=== PATIENT | male | born 1940 | race Caucasian/White ===

== ENCOUNTER → 2017-08-21 07:37 | Outpatient (CLI) | payer MEDICARE, OTHER, SELFPAY ==
[2017-08-21 11:02] LABS: Anion Gap 7 (5-15); BUN 19 mg/dL (7-18); BUN/Creat Ratio 17.8 RATIO (10-20); Calcium,Total 8.8 mg/dL (8.5-10.1); Chloride 107 mmol/L (98-107); Cholesterol 170 mg/dL (200); Creatinine, Serum 1.07 mg/dL (0.70-1.30); EST Glomerular Filtration Rate 72 mL/min (>60); Est Glom Filt Rate - Afr Amer 87 mL/min (>60); Glucose 129 mg/dL (74-106); High Density Lipoprotein 42 mg/dL; PSA,Total - Annual Screen 0.23 ng/mL (0.00-4.00); Potassium 4.1 mmol/L (3.5-5.1); Sodium Level 142 mmol/L (136-145); Triglycerides 131 mg/dL; Very Low Density Lipoprotein 26 mg/dL (5-40)
== END ==
PROVIDERS: Family Provider Family Medicine; PCP Family Medicine; Visit Provider Family Medicine
DX: R73.03 Prediabetes (principal); E78.00 Pure hypercholesterolemia, unspecified; Z12.5 Encounter for screening for malignant neoplasm of prostate
CPT/HCPCS: 36415; 80048; 80061; 84153; G0103

== ENCOUNTER → 2018-02-22 08:44 | Outpatient (CLI) | payer MEDICARE, OTHER, SELFPAY ==
[2017-04-13 11:11] VITALS: BMI 36.1
[2018-02-22 10:18] LABS: Hemoglobin A1c 6.8 % (4.2-6.3)
[2018-02-22 10:21] LABS: Anion Gap 9 (5-15); BUN 19 mg/dL (7-18); BUN/Creat Ratio 16.5 RATIO (10-20); Calcium,Total 8.9 mg/dL (8.5-10.1); Chloride 105 mmol/L (98-107); Cholesterol 158 mg/dL (200); Creatinine, Serum 1.15 mg/dL (0.70-1.30); EST Glomerular Filtration Rate 66 mL/min (>60); Est Glom Filt Rate - Afr Amer 80 mL/min (>60); Glucose 125 mg/dL (74-106); High Density Lipoprotein 38 mg/dL; Potassium 4.2 mmol/L (3.5-5.1); Sodium Level 139 mmol/L (136-145); Triglycerides 181 mg/dL; Very Low Density Lipoprotein 36 mg/dL (5-40)
== END ==
PROVIDERS: Family Provider Family Medicine; PCP Family Medicine; Referring Provider Family Medicine; Visit Provider Family Medicine
DX: R73.03 Prediabetes (principal); E78.00 Pure hypercholesterolemia, unspecified
CPT/HCPCS: 36415; 80048; 80061; 83036

== ENCOUNTER → 2018-04-06 08:46 | Outpatient (CLI) | payer MEDICARE, OTHER, SELFPAY ==
[2018-03-08 10:09] VITALS: BMI 36.4
--- NOTE | 2018-04-06 08:48 | ECHOCS_ITS ---
Reason For Study: MURMUR Procedure This was a 2D Doppler, Color Flow transthoracic echocardiogram. The study was technically difficult. Contrast injection was performed. Exam performed in department. Left Ventricle Normal LV size. Left ventricular systolic function is normal. The estimated ejection fraction is 60 %. No regional wall motion abnormalities noted. Right Ventricle Normal RV size. Normal systolic function. Atria Normal left atrium. Normal right atrium. No doppler evidence for ASD. Mitral Valve There is no mitral annular calcification. Normal mitral valve. Trivial mitral valve insufficiency. Tricuspid Valve Normal tricuspid valve. Mild eccentric tricuspid valve insufficiency. Right ventricular systolic pressure estimated to be 32 mmHg. Aortic Valve Moderate aortic stenosis. Pulmonic Valve The pulmonic valve is not well visualized. Mild (1+) pulmonic valve insufficiency. Great Vessels Normal sized aortic root. Calcified aortic root. Medication 22 gauge I.V. with prn adaptor inserted into right arm. Diluted definity 5ml given slow IV push to enhance endocardial definition. MMode/2D Measurements & Calculations LVIDd: 4.2 cm IVSd: 1.0 cm LVOT diam: 2.0 cm LVIDs: 3.0 cm LVPWd: 1.1 cm LVOT area: 3.1 cm2 RVDd: 4.3 cm FS: 28.3 % Ao root diam: 3.0 cm LAV(MOD-bp): 65.0 ml EDV(MOD-sp4): 142.0 ml LAV(MOD-bp) Indexed: 27.3 ml/m2 ESV(MOD-sp4): 45.8 ml LAV(MOD-sp2): 89.9 ml EF(MOD-sp4): 67.8 % LAV(MOD-sp4): 46.3 ml EDV(MOD-sp2): 122.0 ml SV(MOD-sp4): 96.3 ml SV(MOD-sp2): 54.3 ml EF(MOD-sp2): 44.5 % Aortic Valve Planimetry: 1.3 cm2 LA A4 area: 18.2 cm2 LA dimension(2D): 4.6 cm RA A4 area: 10.3 cm2 Time Measurements MV dec time: 0.26 sec Doppler Measurements & Calculations MV E max jose: 96.7 cm/sec Lat Peak E' Jose: 8.3 cm/sec Med Peak E' Jose: 5.4 cm/sec MV A max jose: 83.9 cm/sec E/E' lat: 11.6 E/E' med: 17.8 MV E/A: 1.2 Ao V2 max: 346.8 cm/sec LV V1 max: 144.9 cm/sec SV(LVOT): 109.1 ml Ao max P.4 mmHg LV V1 max P.4 mmHg Ao V2 mean: 264.3 cm/sec LV V1 mean P.4 mmHg Ao mean P.7 mmHg LV V1 mean: 97.6 cm/sec Ao V2 VTI: 86.4 cm LV V1 VTI: 35.1 cm LELAND(I,D): 1.3 cm2 LELAND(V,D): 1.3 cm2 PA V2 max: 92.3 cm/sec PI end-d jose: 79.2 cm/sec TR max jose: 267.8 cm/sec TR max P.9 mmHg Interpretation Summary The study was technically difficult. Contrast injection was performed. Left ventricular systolic function is normal. The estimated ejection fraction is 60 %. Trivial mitral valve insufficiency. Mild eccentric tricuspid valve insufficiency. Moderate aortic stenosis. Mild (1+) pulmonic valve insufficiency. Calcified aortic root. Right ventricular systolic pressure estimated to be 32 mmHg. Transmitral diastolic flow velocities suggest diastolic dysfunction (pseudonormal pattern). Ordering Physician: Ronal Escobar Referring Physician: HOLA DUPREE Performed By: Shelia Valentine, REGGIE, RVT
== END ==
PROVIDERS: Family Provider Family Medicine; PCP Family Medicine; Referring Provider Internal Medicine Cardiovascular Disease; Visit Provider Internal Medicine Cardiovascular Disease
DX: I36.1 Nonrheumatic tricuspid (valve) insufficiency (principal)
CPT/HCPCS: 93306; Q9957; A4216; C8929

== ENCOUNTER → 2018-06-07 15:06 | Outpatient (CLI) | payer MEDICARE, OTHER, SELFPAY ==
[2018-03-08 10:09] VITALS: BMI 36.4
--- NOTE | 2018-06-07 15:10 | RAD_ITS ---
STUDY: X-RAY CHEST REASON FOR EXAM: Male, 78 years old. Bronchitis TECHNIQUE: Frontal and lateral views COMPARISON: December 17, 2005 FINDINGS: Multiple sternotomy wires, with the upper 2 wires fractured. The lungs are clear and expanded. There is no demonstrated pleural abnormality. Normal size heart. Normal mediastinum and colten. Normal visualized pulmonary arteries. Calcified aortic arch and descending thoracic aorta. Degenerative changes of the thoracic spine. Normal visualized ribs, clavicles, and shoulders. There is no demonstrated abnormality of the visualized soft tissue structures of the upper abdomen. RAD/Chest PA and Lateral IMPRESSION: No acute pulmonary pathology of the chest. Electronically Signed: Brian Medina DO at 23:57 EDT Tel [phone], Service support ,
== END ==
PROVIDERS: Family Provider Family Medicine; PCP Family Medicine; Referring Provider Family Medicine; Visit Provider Family Medicine
DX: J20.9 Acute bronchitis, unspecified (principal)
CPT/HCPCS: 71046

== ENCOUNTER → 2018-10-12 08:17 | Outpatient (CLI) | payer MEDICARE, OTHER, SELFPAY ==
[2018-03-08 10:09] VITALS: BMI 36.4
[2018-10-12 10:39] LABS: Microalbumin,Random Urine 11.3 mg/L (NO RANGE EST.); Microalbumin:Creatinine Ratio 5.2 mg/g CRE (<30 mg/g CRE)
[2018-10-12 10:48] LABS: Hemoglobin A1c 6.1 % (4.2-6.3)
[2018-10-12 10:55] LABS: ALB/GLOB Ratio 0.9 RATIO (0.9-2.4); AST(SGOT) 17 U/L (15-37); Alanine Aminotransfer ALT/SGPT 41 U/L (16-61); Albumin, Serum 3.6 g/dL (3.2-5.0); Alkaline Phosphatase 59 U/L (45-117); Anion Gap 10 (5-15); BUN 18 mg/dL (7-18); BUN/Creat Ratio 16.2 RATIO (10-20); Calcium,Total 8.7 mg/dL (8.5-10.1); Chloride 109 mmol/L (98-107); Cholesterol 145 mg/dL (200); Creatinine, Serum 1.11 mg/dL (0.70-1.30); EST Glomerular Filtration Rate 68 mL/min (>60); Est Glom Filt Rate - Afr Amer 83 mL/min (>60); Globulin 3.8 g/dL (2.2-4.2); Glucose 139 mg/dL (74-106); High Density Lipoprotein 41 mg/dL; Potassium 4.2 mmol/L (3.5-5.1); Protein, Total 7.4 g/dL (6.4-8.2); Sodium Level 143 mmol/L (136-145); Thyroid Stim Hormone (TSH) 0.84 uIU/mL (0.358-3.74); Triglycerides 108 mg/dL; Very Low Density Lipoprotein 22 mg/dL (5-40)
== END ==
PROVIDERS: Family Provider Family Medicine; PCP Family Medicine; Referring Provider Family Medicine; Visit Provider Family Medicine
DX: I25.10 Atherosclerotic heart disease of native coronary artery without angina pectoris (principal); R73.03 Prediabetes
CPT/HCPCS: 36415; 80053; 80061; 82043; 82570; 83036; 84443

== ENCOUNTER → 2018-12-14 08:42 | Outpatient (CLI) | payer MEDICARE, OTHER, SELFPAY ==
[2018-03-08 10:09] VITALS: BMI 36.4
--- NOTE | 2018-12-14 08:44 | CDU_ITS ---
Reason For Study: carotid bruit Rt. Velocities/BP Lt. Velocities/BP Prox CCA 94.3/20.0 cm/sec. Prox CCA 135.7/33.4 cm/sec. Mid CCA 96.9/25.2 cm/sec. Mid CCA 109.7/27.4 cm/sec. Dist CCA 83.8/17.3 cm/sec. Dist CCA 77.7/22.5 cm/sec. Prox ICA 145.5/24.8 cm/sec. Prox ICA 59.3/13.9 cm/sec. Mid ICA 82.6/23.7 cm/sec. Mid ICA 61.8/16.3 cm/sec. Dist ICA 67.9/23.7 cm/sec. Dist ICA 57.3/20.7 cm/sec. Rt. ICA/CCA = 1.5. Lt. ICA/CCA = .6. Prox ECA 167.5/20.4 cm/sec. Prox ECA 106.5/20.6 cm/sec. Rt. Vert. 34.3/7.8 cm/sec. Lt. Vert. 50.7/11.4 cm/sec. Right Extracranial There is heterogeneous, irregular atherosclerotic plaque noted in the right common carotid artery. There is heterogeneous, irregular atherosclerotic plaque noted in the right internal carotid artery. The atherosclerotic plaque causes acoustic shadowing. There is heterogeneous, irregular atherosclerotic plaque noted in the right external carotid artery. Antegrade flow is noted in the right vertebral artery. There is heterogeneous, irregular atherosclerotic plaque noted in the right bulb. Left Extracranial There is heterogeneous, irregular atherosclerotic plaque noted in the left common carotid artery. There is heterogeneous, irregular atherosclerotic plaque noted in the left internal carotid artery. There is heterogeneous, irregular atherosclerotic plaque noted in the left external carotid artery. Antegrade flow is noted in the left vertebral artery. There is heterogeneous, irregular atherosclerotic plaque noted in the left bulb. Procedure Carotid Duplex 42725. The exam was diagnostic. Exam performed in department. Interpretation Summary Moderate (50-69%) stenosis right extracranial internal carotid. Mild (<50%) stenosis left extracranial internal carotid. Flow within the vertebral arteries is antegrade bilaterally. Ordering Physician: He Pickard Performed By: Vahe Morgan RVT
== END ==
PROVIDERS: Family Provider Family Medicine; PCP Family Medicine; Referring Provider Surgery Vascular Surgery; Visit Provider Surgery Vascular Surgery
DX: R09.89 Other specified symptoms and signs involving the circulatory and respiratory systems (principal); I25.10 Atherosclerotic heart disease of native coronary artery without angina pectoris; C43.59 Malignant melanoma of other part of trunk; I65.23 Occlusion and stenosis of bilateral carotid arteries; Z87.891 Personal history of nicotine dependence
CPT/HCPCS: 93880

== ENCOUNTER → 2019-07-07 07:51 | Outpatient (CLI) | payer MEDICARE, OTHER, SELFPAY ==
[2018-12-17 13:01] VITALS: BMI 35.1
[2019-07-07 10:02] LABS: Absolute Lymphocyte Count 2.43 X10^3/uL (0.83-4.51); Absolute Neutrophil Count 4.5 X10^3/uL (2.0-7.7); Basophil# 0.07 X10^3/uL; Basophil% 0.9 % (0-1); Eosinophil# 0.16 X10^3/uL; Hematocrit 40.6 % (40-54); Hemoglobin 14.1 g/dL (13.0-16.5); Lymphocyte # 2.43 X10^3/ul (4.0); Mean Corp Hgb Conc 34.7 g/dL (32-36); Mean Corpuscular Hgb 32.9 pg (27.0-32.0); Mean Corpuscular Volume 94.6 fL (80-94); Mean Platelet Vol. 9.7 fl (6.2-12.0); Monocyte# 0.69 X10^3/uL; Monocyte% 8.8 % (0-10); NRBC Flagged by Analyzer 0 % (0-5); Neutrophil # 4.46 X10^3/uL (2.7-7.7); Platelet Count 264 K/mm3 (150-450); RBC Distribution Width CV 12.4 % (11.6-14.6); RBC Distribution Width SD 42.9 fl (35.1-43.9); Red Blood Count 4.29 M/mm3 (4.6-6.2); White Blood Count 7.8 K/mm3 (4.4-11.0)
[2019-07-07 10:18] LABS: AST(SGOT) 16 U/L (15-37); Alanine Aminotransfer ALT/SGPT 44 U/L (16-61); Albumin, Serum 3.7 g/dL (3.2-5.0); Alkaline Phosphatase 57 U/L (45-117); BUN 22 mg/dL (7-18); BUN/Creat Ratio 19.1 RATIO (10-20); Calcium,Total 8.9 mg/dL (8.5-10.1); Chloride 104 mmol/L (98-107); Cholesterol 143 mg/dL (200); Creatinine, Serum 1.15 mg/dL (0.70-1.30); EST Glomerular Filtration Rate 66 mL/min (>60); Est Glom Filt Rate - Afr Amer 79 mL/min (>60); Globulin 3.8 g/dL (2.2-4.2); Glucose 128 mg/dL (74-106); Protein, Total 7.5 g/dL (6.4-8.2); Sodium Level 138 mmol/L (136-145); Triglycerides 142 mg/dL
[2019-07-07 10:19] LABS: Anion Gap 9 (5-15); High Density Lipoprotein 36 mg/dL; PSA,Total - Annual Screen 0.23 ng/mL (0.00-4.00); Very Low Density Lipoprotein 28 mg/dL (5-40)
[2019-07-07 10:21] LABS: Hemoglobin A1c 6.2 % (3.8-5.6)
[2019-07-07 10:23] LABS: Microalbumin,Random Urine 8.6 mg/L (NO RANGE EST.); Microalbumin:Creatinine Ratio 4.8 mg/g CRE (<30 mg/g CRE)
== END ==
PROVIDERS: PCP Family Medicine; Referring Provider Family Medicine; Visit Provider Family Medicine
DX: I25.10 Atherosclerotic heart disease of native coronary artery without angina pectoris (principal); R73.03 Prediabetes; Z12.5 Encounter for screening for malignant neoplasm of prostate
CPT/HCPCS: 36415; 80053; 80061; 82043; 82570; 83036; 84153; 85025; G0103

== ENCOUNTER → 2019-11-17 06:41 | Outpatient (CLI) | payer MEDICARE, OTHER, SELFPAY ==
[2019-11-03 15:57] VITALS: BMI 35.9
--- NOTE | 2019-11-17 06:41 | ECHOCS_ITS ---
Reason For Study: MITRAL VALVE PROLAPSE Procedure This was a 2D Doppler, Color Flow transthoracic echocardiogram. The study was technically difficult. Contrast injection was performed. Exam performed in department. Left Ventricle Normal LV size. Left ventricular systolic function is normal. The estimated ejection fraction is 65 %. No evidence for diastolic dysfunction. No regional wall motion abnormalities noted. Right Ventricle Normal RV size. Normal systolic function. Atria Normal left atrium. Normal right atrium. No doppler evidence for ASD. Mitral Valve There is no mitral annular calcification. Normal mitral valve. Trivial mitral valve insufficiency. Tricuspid Valve Normal tricuspid valve. Trivial tricuspid valve insufficiency. Right ventricular systolic pressure estimated to be 26 mmHg. Aortic Valve Trisinus/trileaflet aortic valve. Moderate diffuse aortic valve thickening. Moderate diffuse aortic valve calcification. Moderate aortic stenosis. Pulmonic Valve The pulmonic valve is not well visualized. Great Vessels Normal sized aortic root. Pericardium/Pleural No pericardial effusion. Medication Diluted definity 3ml given slow IV push to enhance endocardial definition. MMode/2D Measurements & Calculations LVIDd: 3.8 cm IVSd: 1.0 cm LVOT diam: 2.0 cm LVIDs: 2.9 cm LVPWd: 1.0 cm RVDd: 4.1 cm FS: 24.6 % LVOT area: 3.0 cm2 Ao root diam: 3.0 cm LAV(MOD-bp): 42.9 ml LVAd ap4: 35.7 cm2 LAV(MOD-bp) Indexed: 17.7 ml/m2 EDV(MOD-sp4): 120.7 ml LAV(MOD-sp2): 46.9 ml EDV(sp4-el): 125.7 ml LAV(MOD-sp4): 36.6 ml LVAs ap4: 20.0 cm2 ESV(MOD-sp4): 46.5 ml ESV(sp4-el): 46.7 ml EF(MOD-sp4): 61.5 % EF(sp4-el): 62.8 % SV(MOD-sp4): 74.2 ml SV(sp4-el): 79.0 ml LA A4 area: 17.3 cm2 LA dimension(2D): 4.4 cm RA A4 area: 14.6 cm2 Time Measurements MV dec time: 0.31 sec Doppler Measurements & Calculations MV E max jose: 73.3 cm/sec Lat Peak E' Jose: 7.7 cm/sec Med Peak E' Jose: 5.7 cm/sec MV A max jose: 112.6 cm/sec E/E' lat: 9.6 E/E' med: 12.8 MV E/A: 0.65 Ao V2 max: 363.1 cm/sec LV V1 max: 135.4 cm/sec SV(LVOT): 96.9 ml Ao max P.7 mmHg LV V1 max P.3 mmHg Ao V2 mean: 272.5 cm/sec LV V1 mean P.8 mmHg Ao mean P.9 mmHg LV V1 mean: 89.2 cm/sec Ao V2 VTI: 89.6 cm LV V1 VTI: 32.3 cm LELAND(I,D): 1.1 cm2 LELAND(V,D): 1.1 cm2 PA V2 max: 114.0 cm/sec TR max jose: 238.2 cm/sec TR max P.7 mmHg Interpretation Summary The study was technically difficult. Contrast injection was performed. Left ventricular systolic function is normal. The estimated ejection fraction is 65 %. Trivial mitral valve insufficiency. Trivial tricuspid valve insufficiency. Moderate aortic stenosis. Right ventricular systolic pressure estimated to be 26 mmHg. No evidence for diastolic dysfunction. Ordering Physician: Ronal Escobar Referring Physician: MERLYN THAYER Performed By: Donna Billingsley RDCS
--- NOTE | 2019-11-17 06:41 | CDU_ITS ---
Reason For Study: carotid stenosis Rt. Velocities/BP Lt. Velocities/BP Prox CCA 63.0/14.7 cm/sec. Prox CCA 124.4/33.5 cm/sec. Mid CCA 87.8/23.9 cm/sec. Mid CCA 98.6/27.4 cm/sec. Dist CCA 76.0/25.2 cm/sec. Dist CCA 77.7/26.2 cm/sec. Prox ICA 146.7/35.3 cm/sec. Prox ICA 70.4/21.2 cm/sec. Mid ICA 117.4/24.3 cm/sec. Mid ICA 59.3/22.5 cm/sec. Dist ICA 70.0/20.6 cm/sec. Dist ICA 72.8/29.8 cm/sec. Rt. ICA/CCA = 1.7. Lt. ICA/CCA = .7. Prox ECA 135.7/18.8 cm/sec. Prox ECA 76.5/12.6 cm/sec. Rt. Vert. 24..8/9.7 cm/sec. Lt. Vert. 63.3/10.6 cm/sec. Right Extracranial There is heterogeneous, irregular atherosclerotic plaque noted in the right common carotid artery. There is heterogeneous, irregular atherosclerotic plaque noted in the right internal carotid artery. There is heterogeneous, irregular atherosclerotic plaque noted in the right external carotid artery. Antegrade flow is noted in the right vertebral artery. There is heterogeneous, irregular atherosclerotic plaque noted in the right bulb. Left Extracranial There is heterogeneous, irregular atherosclerotic plaque noted in the left common carotid artery. There is heterogeneous, irregular atherosclerotic plaque noted in the left internal carotid artery. There is heterogeneous, irregular atherosclerotic plaque noted in the left external carotid artery. Antegrade flow is noted in the left vertebral artery. There is heterogeneous, irregular atherosclerotic plaque noted in the left bulb. Procedure Carotid Duplex 53396. This is a Carotid Duplex examination using B-mode, color flow and specral Doppler. The exam was diagnostic. Exam performed in department. Interpretation Summary Moderate (50-69%) stenosis right extracranial internal carotid. Mild (<50%) stenosis left extracranial internal carotid. Flow within the vertebral arteries is antegrade bilaterally. Ordering Physician: Ronal Escobar Performed By: Vahe Morgan RVT
--- NOTE | 2019-11-17 11:43 | STRESSREP_ITS ---
Stress Test Report Date: 11-17-2019 Procedure: Exercise tolerance test/imaging study Indications: CAD; CABG; preoperative cardiovascular evaluation Consent: Per the patient Procedure: The patient exercised on a Clemente protocol for 6 minutes completing Stage II achieving a peak heart rate of 133 bpm (93% predicted maximal heart rate) with a peak blood pressure 148/80 mmHg and a peak MET capacity of 7 METs. The baseline ECG demonstrated sinus rhythm; right bundle branch block. The peak exercise ECG demonstrated no obvious ECG changes. There were no cardiac dysrhythmias pretest, during exercise, or recovery. The functional capacity was considered average. There was no complaint of chest discomfort during exercise or recovery. The examination was discontinued secondary to dyspnea and leg discomfort. Impression: 1. Technically adequate (percent predicted maximal heart rate greater than 85%) exercise tolerance test 2. Peak exercise ECG with continued right bundle branch block pattern with no obvious ECG changes 3. There were no cardiac dysrhythmias pretest, during exercise, or recovery 4. Nuclear images pending Myocardial perfusion imaging study: Technique: The patient was injected with 15.0 mCi of technetium 99m Cardiolite and subsequently rest SPECT Cardiolite nuclear imaging was obtained in the horizontal long, vertical long, and short axis views. The patient exercised on a Clemente protocol for 6 minutes completing Stage II achieving a peak heart rate of 133 bpm (93% predicted maximal heart rate) with a peak blood pressure 148/80 mmHg and a peak MET capacity of 7 METs. The patient was injected with 44.0 mCi of technetium 99m Cardiolite and subsequently stress SPECT Cardiolite nuclear imaging was obtained in the horizontal long, vertical long, and short axis views. A gated Cardiolite study at peak stress was obtained. Interpretation: Rest and stress SPECT Cardiolite nuclear imaging status post realignment, nor malization, and attenuation correction, demonstrates the appearance of relative uniform tracer uptake and myocardial perfusion appearing within normal limits. There is end systolic thickening and brightening. The gated Cardiolite study demonstrates myocardial thickening and inward wall motion. The reported LVEF is 66%. Impression: 1. Rest and stress SPECT Cardiolite nuclear imaging demonstrate relative uniform tracer uptake and myocardial perfusion appearing within normal limits. 2. The gated Cardiolite study reports an LVEF of 66%. This note was generated with [employer] software. It may contain incorrect words, spelling, and punctuation that were not noted in checking the note before signing.
== END ==
PROVIDERS: PCP Family Medicine; Referring Provider Internal Medicine Cardiovascular Disease; Visit Provider Internal Medicine Cardiovascular Disease
DX: I25.10 Atherosclerotic heart disease of native coronary artery without angina pectoris (principal); I65.23 Occlusion and stenosis of bilateral carotid arteries; I35.0 Nonrheumatic aortic (valve) stenosis; I36.1 Nonrheumatic tricuspid (valve) insufficiency; I10 Essential (primary) hypertension; E78.2 Mixed hyperlipidemia; Z95.1 Presence of aortocoronary bypass graft
CPT/HCPCS: 78452; 93017; 93306; 93880; A9500; Q9957; A4216; C8929

== ENCOUNTER → 2020-01-11 07:36 | Outpatient (CLI) | payer MEDICARE, OTHER, SELFPAY ==
[2019-11-03 15:57] VITALS: BMI 35.9
[2020-01-11 10:21] LABS: AST(SGOT) 21 U/L (15-37); Alanine Aminotransfer ALT/SGPT 45 U/L (16-61); Albumin, Serum 3.9 g/dL (3.2-5.0); Alkaline Phosphatase 58 U/L (45-117); Anion Gap 6 (5-15); BUN 21 mg/dL (7-18); BUN/Creat Ratio 17.5 RATIO (10-20); Calcium,Total 9.3 mg/dL (8.5-10.1); Chloride 105 mmol/L (98-107); EST Glomerular Filtration Rate 62 mL/min (>60); Est Glom Filt Rate - Afr Amer 75 mL/min (>60); Globulin 3.8 g/dL (2.2-4.2); Glucose 132 mg/dL (74-106); Protein, Total 7.7 g/dL (6.4-8.2); Sodium Level 138 mmol/L (136-145)
== END ==
PROVIDERS: PCP Family Medicine; Referring Provider Family Medicine; Visit Provider Family Medicine
DX: R73.03 Prediabetes (principal)
CPT/HCPCS: 36415; 80053

== ENCOUNTER 2020-04-19 11:14 | Day surgery (SDC) | payer MEDICARE, OTHER, SELFPAY ==
[2019-11-03 15:57] VITALS: BMI 35.9
[2020-04-19 11:46] VITALS: BP 146/71; PULSE 79; RESP 16; TEMP 36.5; O2SAT 95; BMI 34.0
[2020-04-19] MEDS: Lactated Ringers 1,000 ML 100 ML IV (11:51)
--- NOTE | 2020-04-19 13:09 | RAD_ITS ---
STUDY: X-RAY - ABDOMEN/PELVIS REASON FOR EXAM: Male, 80 years old. Incomplete colonoscopy TECHNIQUE: Two AP supine views of the abdomen and pelvis. COMPARISON: None. FINDINGS: Normal visualized lung bases. There is marked gaseous distention of the colon, most compatible with a colonic ileus. There is no demonstrated free abdominal air. The visualized liver, spleen and kidneys are grossly normal in size and morphology. Normal soft tissue structures. Normal visualized osseous structures. RAD/Abdomen Single View IMPRESSION: There is marked gaseous distention of the colon, most compatible with a colonic ileus. Electronically Signed: Aura Schafer MD at 15:20 EST Tel , Service support ,
--- NOTE | 2020-04-19 13:09 | OP.COLON_ITS ---
Patient Name: Gab Callahan Procedure Date: 04/19/2020 12:34 PM Date of : 1940 Age: 80 Procedure: Colonoscopy Indications: Screening for colorectal malignant neoplasm Providers: Angel Sierra MD Referring MD: Yaya Ibarra Medicines: See the Anesthesia note for documentation of the administered medications Patient Profile: This is a 80 year old male. Refer to note in patient chart for documentation of history and physical. Last Colonoscopy: more than 10 years ago. Complications: No immediate complications. Procedure: Pre-Anesthesia Assessment: - Prior to the procedure, a History and Physical was performed, and patient medications and allergies were reviewed. The patient's tolerance of previous anesthesia was also reviewed. The risks and benefits of the procedure and the sedation options and risks were discussed with the patient. All questions were answered, and informed consent was obtained. Prior Anticoagulants: The patient has taken aspirin, last dose was 7 days prior to procedure. ASA Grade Assessment: III - A patient with severe systemic disease. After reviewing the risks and benefits, the patient was deemed in satisfactory condition to undergo the procedure. After I obtained informed consent, the scope was passed under direct vision. Throughout the procedure, the patient's blood pressure, pulse, and oxygen saturations were monitored continuously. The colonoscope was introduced through the anus with the intention of advancing to the cecum. The scope was advanced to the ascending colon before the procedure was aborted. Medications were given. The colonoscopy was aborted due to the extreme difficulty of the procedure. Increasing the dose of sedation medication and applying abdominal pressure did not allow for the successful completion of the procedure. The colonoscopy was extremely difficult due to a tortuous colon. The patient tolerated the procedure well. The quality of the bowel preparation was good. Scope In: 12:43:48 PM Scope Withdrawal Time 0 hours 3 minutes 49 seconds Scope Out: 1:04:28 PM Total Procedure Duration Time 0 hours 20 minutes 40 seconds Findings: The entire examined colon appeared normal on direct and retroflexion views. Impression: - The procedure was aborted due to the extreme difficulty of the procedure. - The entire examined colon is normal on direct and retroflexion views. - No specimens collected. Recommendation: - Discharge patient to home. - Resume previous diet. - Continue present medications. - Perform an air contrast barium enema today. - No repeat colonoscopy due to current age (66 years or older). Procedure Code(s): --- Professional --- G0121, 53, Colorectal cancer screening; colonoscopy on individual not meeting criteria for high risk Diagnosis Code(s): --- Professional --- Z12.11, Encounter for screening for malignant neoplasm of colon Z53.8, Procedure and treatment not carried out for other reasons CPT copyright 2017 [employer]. All rights reserved. The codes documented in this report are preliminary and upon vp human resources review may be revised to meet current compliance requirements. MD Angel Jean MD 04/19/2020 1:09:15 PM This report has been signed electronically. Number of Addenda: 0 Note Initiated On: 04/19/2020 12:34 PM
--- NOTE | 2020-04-19 13:09 | OP.CCLET_ITS ---
04/19/2020 Yaya Ibarra [address] [place] [address] Re : Colonoscopy procedure for Gab Callahan Dear Dr. Ibarra This procedure was performed on April. My impressions and recommendations are as follows: Impressions : - The procedure was aborted due to the extreme difficulty of the procedure. - The entire examined colon is normal on direct and retroflexion views. - No specimens collected. Recommendations : - Discharge patient to home. - Resume previous diet. - Continue present medications. - Perform an air contrast barium enema today. - No repeat colonoscopy due to current age (66 years or older). My findings are described in the full procedure note, which is enclosed. If I can be of further assistance, please feel free to contact me at Doctor phone number(s): , Fax: [phone], Work: . Sincerely, MD Angel Jean MD 04/19/2020 1:09:15 PM This report has been signed electronically.
[2020-04-19 13:11] VITALS: BP 105/78; BP 146/71; PULSE 74; RESP 16; TEMP 36.4; O2SAT 97
[2020-04-19 13:15] VITALS: BP 107/67; BP 146/71; PULSE 74; RESP 16; O2SAT 95
[2020-04-19 13:20] VITALS: BP 116/83; BP 146/71; PULSE 76; RESP 16; O2SAT 95
[2020-04-19 13:25] VITALS: BP 112/69; BP 146/71; PULSE 67; RESP 16; TEMP 36.4; O2SAT 95
[2020-04-19 14:30] VITALS: BP 146/71
== END 2020-04-19 14:40 | disposition home or self-care (01) ==
LOC: EN 11:14 → AC 11:15
PROVIDERS: PCP Family Medicine; Referring Provider Family Medicine; Visit Provider Surgery
PROC: 0DJD8ZZ Inspection of Lower Intestinal Tract, Via Natural or Artificial Opening Endoscopic (ICD-10-PCS; CPT 45378; principal; 2020-04-19 12:25)
DX: Z12.11 Encounter for screening for malignant neoplasm of colon (principal); I25.10 Atherosclerotic heart disease of native coronary artery without angina pectoris; E78.5 Hyperlipidemia, unspecified; Z79.899 Other long term (current) drug therapy; Z95.1 Presence of aortocoronary bypass graft; Z87.891 Personal history of nicotine dependence; Z20.822 Contact with and (suspected) exposure to COVID-19
CPT/HCPCS: G0121; 74018; 87426; C9803; J7120; J2405

== ENCOUNTER → 2020-12-27 07:54 | Outpatient (CLI) | payer MEDICARE, OTHER, SELFPAY ==
[2020-05-02 09:27] VITALS: BMI 35.2
[2020-12-27 10:15] LABS: Absolute Lymphocyte Count 2.43 X10^3/uL (0.83-4.51); Absolute Neutrophil Count 3.8 X10^3/uL (2.0-7.7); Basophil# 0.08 X10^3/uL; Basophil% 1.1 % (0-1); Eosinophil# 0.16 X10^3/uL; Eosinophils% 2.3 % (0-5); Hematocrit 40.7 % (40-54); Hemoglobin 13.9 g/dL (13.0-16.5); Lymphocyte # 2.43 X10^3/ul (0.83-4.51); Lymphocyte % 34.4 % (19-41); Mean Corp Hgb Conc 34.2 g/dL (32-36); Mean Corpuscular Hgb 31.7 pg (27.0-32.0); Mean Corpuscular Volume 92.9 fL (80-94); Mean Platelet Vol. 9.5 fl (6.2-12.0); Monocyte# 0.54 X10^3/uL; Monocyte% 7.6 % (0-10); NRBC Flagged by Analyzer 0 % (0-5); Neutrophil # 3.84 X10^3/uL (2.7-7.7); Neutrophil % 54.3 % (47-70); Platelet Count 280 K/mm3 (150-450); RBC Distribution Width CV 12.2 % (11.6-14.6); RBC Distribution Width SD 41.7 fl (35.1-43.9); Red Blood Count 4.38 M/mm3 (4.6-6.2); White Blood Count 7.1 K/mm3 (4.4-11.0)
[2020-12-27 10:31] LABS: Microalbumin,Random Urine 10.8 mg/L (NO RANGE EST.); Microalbumin:Creatinine Ratio 7.4 mg/g CRE (<30 mg/g CRE)
[2020-12-27 10:32] LABS: Hemoglobin A1c 5.9 % (3.8-5.6)
[2020-12-27 10:38] LABS: ALB/GLOB Ratio 0.9 RATIO (0.9-2.4); AST(SGOT) 19 U/L (15-37); Alanine Aminotransfer ALT/SGPT 34 U/L (16-61); Albumin, Serum 3.6 g/dL (3.2-5.0); Alkaline Phosphatase 57 U/L (45-117); Anion Gap 8 (5-15); BUN 19 mg/dL (7-18); BUN/Creat Ratio 19.3 RATIO (10-20); Chloride 101 mmol/L (98-107); Cholesterol 160 mg/dL (200); Creatinine, Serum 0.99 mg/dL (0.70-1.30); EST Glomerular Filtration Rate 78 mL/min (>60); Est Glom Filt Rate - Afr Amer 94 mL/min (>60); Globulin 3.9 g/dL (2.2-4.2); Glucose 128 mg/dL (74-106); High Density Lipoprotein 36 mg/dL; PSA,Total - Annual Screen 0.21 ng/mL (0.00-4.00); Potassium 3.9 mmol/L (3.5-5.1); Protein, Total 7.5 g/dL (6.4-8.2); Sodium Level 136 mmol/L (136-145); Triglycerides 132 mg/dL; Very Low Density Lipoprotein 26 mg/dL (5-40)
== END ==
PROVIDERS: Family Medicine; PCP Family Medicine; Referring Provider Family Medicine; Visit Provider Family Medicine
DX: I25.10 Atherosclerotic heart disease of native coronary artery without angina pectoris (principal); E78.00 Pure hypercholesterolemia, unspecified; R73.03 Prediabetes; Z12.5 Encounter for screening for malignant neoplasm of prostate
CPT/HCPCS: 36415; 80053; 80061; 82043; 82570; 83036; 84153; 85025; G0103

== ENCOUNTER 2021-02-20 11:00 | Outpatient (RCR) | payer MEDICARE, OTHER, SELFPAY ==
--- NOTE | 2020-11-28 09:48 | HP.PTEVAL_ITS ---
Patient's Visit Information GWEN ARANDA is a 80 year old M referred to Physical Therapy by Dr. Yaya Ibarra MD with a diagnosis of R hip pain. Date of Evaluation: 11/19/20 Physical Therapist: Sander Boston DPT - Visit Plan Frequency: 1x/Week Duration: 10 weeks Plan: Start with ROM/stretching of B hips and lumbar spine into extension. Add in core and hip strengthening progressing to gym exercises. - Subjective Pt. is here today for her initial evaluation with diagnosis of R hip pain. Pt. reports on and of pain in R hip. Pt. reports having R knee pain and pain that radiates down his R leg form his hip to his toes at times. Pt. reports greatest pain with sitting. Pt. reports minimal in AMs but worsens as the day progresses. Pt. does report that he has some N/T at times, but not all the time. He does use an analgesic cream for his knee pain in evenings. Pt. reports symptoms were aggravated after walking a lot on vacation and then falling out of his chair after falling asleep. He was previously very active, but has done less recently. Previously attended a gym, but has stopped. He reports no issues with sleeping, no pain in AMs (he does stretch prior to getting out of bed). No imaging done at this point in time. He is hopeful to reduce symptoms in order to get back to gym without limitations. - Pain R posterior hip Pain Intensity (Out of 10): 3 Pain Intensity Range: 0, 6 - Objective POSTURE: pt. has decent posture in stance. PALPATION: pt. has tenderness along thigh and lateral hip. Pt. is also having some low back pain tenderness at L3- L5. NEURO: normal throughout. Normal sensation and normal DTR of BLEs. ROM: LUMBAR: flexion: min loss mild increase nW, ext mod loss mild decrease NB. SB min loss NE bilat, rotation min loss NE bilat. Pt. does have tight B IT bands. MMT: R hip: flexion 22.1#, abd 17.0#, L hip; 26.5#, abd 23.4#, Core strength- poor. GAIT: Pt. has good posture in stance with rigid posture during gait. - Balance/Special Test Scores Lower Extremity Functional Score: 35 - Goals Goal 1:: LTG: Pt. to be I with HEP for home and gym exercises. Goal Time Frame: 4-6 Weeks Goal 2:: STG: Pt. to report 0-2/10 pain in R hip and RLE with daily activities. Goal Time Frame: 2 Weeks Goal 3:: LTG: Pt. to have no pain with all recreational and gym activities. Goal Time Frame: 4-6 Weeks Goal 4:: LTG: Pt. to have increased BLE and core strength increased to 5-/5 and fair respectively. Goal Time Frame: 4-6 Weeks - Rehabilitation Potential Physical Therapy Diagnosis: Pt. has signs and symptoms of R hip pain with hypomobility noted in hip and lumbar spine. Pt. would benefit from BLE and core stability exercises and B hip/lumbar ROM exercises. Rehabilitation Potential: Excellent - Anticipated Interventions Patient/Client Instruction: Educate patient on: Condition, Plan of Care, Risk Factors, Benefits of Fitness Program For the Purpose of:: To improve safety, To improve health and function, To foster healthy habits, To improve decision making, To facilitate caregiver knowledge, To improve self management, To prevent re-injury, To improve ability to perform tasks related to life management Therapeutic Exercise to Include: Strength training, Balance training, Coordination, Postural training, Flexibilty training, Passive ROM, Active ROM, Dynamic Lumbar Stabilization, [place] Exercises For the Purpose of:: To decrease pain, To increase ROM, To improve nutrient delivery to tissue, To increase oxygenation perfusion, To improve muscle performance and motor function, To improve ability to perform ADL's, To decrease level of supervision to perform tasks, To improve health of tissue, To decrease soft tissue restriction, To increase flexibility/ROM Manual Therapy Techniques to Include: Mobilization, Passive ROM, Soft tissue mobilization For the Purpose of:: To decrease pain, To decrease swelling/inflammation, To increase ROM, To improve nutrient delivery to tissue, To increase oxygenation perfusion Thank you for the opportunity to evaluate your patient. For Medicare and Medicare HMO plans, please review the plan of care and approve it. It will need to be FAXED BACK to us at [phone] for Medicare purposes. For Medicare only, by signing this I certify the plan of care. Please let me know if there are questions or concerns regarding this plan of care. Physician Signature: Date:
--- NOTE | 2020-12-19 14:52 | HP.PTREVAL ---
Dr. Yaya Ibarra MD, It has been my pleasure to treat GWEN ARANDA over the last 5 visits for R hip pain. Please see the progress note below for an update on the physical therapy plan of care! Subjective: Pt reports he believes PT has been helping and he states his hip has gotten a little better, he still experiences pain in down into his leg, but he reports his biggest complaint is numbness in his foot. Objective/Function: Pt experienced some tenderness with palpation of piriformis, and passive IR. Continues to experience numbness in his foot, nerve glides mildly provoked initial symptom pattern. ROM: Lumbar spine- flexion min loss mild increase NW during movement (no issues post), ext mod loss NE, SB min loss bilat NE, rotation mid loss bilat NE. Pt. has slight tightness in B HS, but no major issues. Pt. had tightness with hip ER motion as well. MMT: Pt. stiles decent strength throughout BLEs. 4+/5 throughout. Pt. has fair- core strength. GAIT: normal gait pattern. He did have some relief with seated and supine nerve glides. Plan Plan: Check in with patient and see how nerve glides have been affecting symptoms. Cont. with piriformis stretching as well. Continue with ROM/Stretching of B hips and lumbar spine into extension; Core and hip strengthening progressing to gym exercises. Consider spring testing next visit. Balance/Gait/Functional tests - Balance/Special Test Scores Lower Extremity Functional Score: 35 Goals Goal 1:: LTG: Pt. to be I with HEP for home and gym exercises. Goal Time Frame: 4-6 Weeks Goal 2:: STG: Pt. to report 0-2/10 pain in R hip and RLE with daily activities. Goal Time Frame: 2 Weeks Goal 3:: LTG: Pt. to have no pain with all recreational and gym activities. Goal Time Frame: 4-6 Weeks Goal 4:: LTG: Pt. to have increased BLE and core strength increased to 5-/5 and fair respectively. Goal Time Frame: 4-6 Weeks Anticipated Interventions Patient/Client Instruction: Educate patient on: Condition, Plan of Care, Risk Factors, Benefits of Fitness Program For the Purpose of:: To improve safety, To improve health and function, To foster healthy habits, To improve decision making, To facilitate caregiver knowledge, To improve self management, To prevent re-injury, To improve ability to perform tasks related to life management Therapeutic Exercise to Include: Strength training, Balance training, Coordination, Postural training, Flexibilty training, Passive ROM, Active ROM, Dynamic Lumbar Stabilization, [place] Exercises For the Purpose of:: To decrease pain, To increase ROM, To improve nutrient delivery to tissue, To increase oxygenation perfusion, To improve muscle performance and motor function, To improve ability to perform ADL's, To decrease level of supervision to perform tasks, To improve health of tissue, To decrease soft tissue restriction, To increase flexibility/ROM Manual Therapy Techniques to Include: Mobilization, Passive ROM, Soft tissue mobilization For the Purpose of:: To decrease pain, To decrease swelling/inflammation, To increase ROM, To improve nutrient delivery to tissue, To increase oxygenation perfusion Please do not hesitate to contact me at [phone] by phone or if you have questions or concerns regarding this new plan of care! Sincerely, Sander Boston DPT
--- NOTE | 2021-01-22 12:23 | HP.PTREVAL ---
Dr. Yaya Ibarra MD, It has been my pleasure to treat GWEN ARANDA over the last 10 visits for R hip pain. Please see the progress note below for an update on the physical therapy plan of care! Subjective: Pt reports he feels he is improving, but does continue to have pain during sleep. Pt does say numbness and tingling has decreased in LE. Pt. reports knee pain is intemittent, mostly in evenings. Objective/Function: STRENGTH: Right: hip flexors 4+/5, extensors 4+/5, abduction 4+, IR 4+/5, ER 5/5, knee flexors 5/5, extensors 5/5. PALPATION: TTP hamstring tendon along medial insertion point. I would like him to continue to stretching his HS, but also work on R hip strengthening, core strengthening exercises. Progress gym exercises to increase carry over into independent program. Pt continues to progress towards goals and improve on R LE strength, but continues to have some pain in medial side of right knee which is provoked with palpation of medial hamstring tendon or seated hamstring stretch with eversion of Right foot. Plan Plan: Continue with ROM/Stretching of B hips and lumbar spine into extension; Core and hip strengthening progressing to gym exercises. Cont. with piriformis stretching as well. Progress gym exercises with focus on above limitations. Balance/Gait/Functional tests - Balance/Special Test Scores Lower Extremity Functional Score: 56 Goals Goal 1:: LTG: Pt. to be I with HEP for home and gym exercises. Goal Time Frame: 4-6 Weeks Goal Progress: Goal Met Goal 2:: STG: Pt. to report 0-2/10 pain in R hip and RLE with daily activities. Goal Time Frame: 2 Weeks Goal Progress: Progressing Goal 3:: LTG: Pt. to have no pain with all recreational and gym activities. Goal Time Frame: 4-6 Weeks Goal Progress: Progressing Goal 4:: LTG: Pt. to have increased BLE and core strength increased to 5-/5 and fair respectively. Goal Time Frame: 4-6 Weeks Goal Progress: Progressing Anticipated Interventions Patient/Client Instruction: Educate patient on: Condition, Plan of Care, Risk Factors, Benefits of Fitness Program For the Purpose of:: To improve safety, To improve health and function, To foster healthy habits, To improve decision making, To facilitate caregiver knowledge, To improve self management, To prevent re-injury, To improve ability to perform tasks related to life management Therapeutic Exercise to Include: Strength training, Balance training, Coordination, Postural training, Flexibilty training, Passive ROM, Active ROM, Dynamic Lumbar Stabilization, [place] Exercises For the Purpose of:: To decrease pain, To increase ROM, To improve nutrient delivery to tissue, To increase oxygenation perfusion, To improve muscle performance and motor function, To improve ability to perform ADL's, To decrease level of supervision to perform tasks, To improve health of tissue, To decrease soft tissue restriction, To increase flexibility/ROM Manual Therapy Techniques to Include: Mobilization, Passive ROM, Soft tissue mobilization For the Purpose of:: To decrease pain, To decrease swelling/inflammation, To increase ROM, To improve nutrient delivery to tissue, To increase oxygenation perfusion Please do not hesitate to contact me at [phone] by phone or if you have questions or concerns regarding this new plan of care! Sincerely, Sander Boston DPT
--- NOTE | 2021-02-20 11:31 | HP.PTDCSUM_ITS ---
It has been my pleasure to treat GWEN ARANDA referred by Dr. Yaya Ibarra MD, with the diagnosis of R hip pain for a total of 14 visit(s). Discharge Date: 02/20/21 Please see the following information for a summary of their discharge status. Subjective: Pt. reports overall doing well. He has some symptoms that come and go, but overall better. He uses cream which does help. He reports being 85% better overall. I am happy with what we have do here. He reports being HEP compliant in gym with good tolerance and full independence. He plans on attendin g gym at least x3 days per week. Right Knee Pain Intensity (Out of 10): 1 R posterior hip Pain Intensity (Out of 10): 0 % Improvement: 90 Objective/Function: ROM: Pt. has good ROM of both hips and knees. He does have tightness in B HS, ~60deg of length in 90/90 positioning bilaterally. Slight tightness in B TFL muscle groups as well. Both are symmetrical in his tightness. Good hip IR motion bilat. LUMBAR ROM: flexion nil/min loss NE, ext min loss NE, SB nil loss NE, rotation nil loss NE. MMT: Pt. has good strength throughout BLEs, symmetrical 5/5, except hip ext 4+/5 bilat. GAIT: Pt. has normal gait pattern, no antalgic pattern. Pt. reports increase in symptoms with walking compared to sitting. STAIRS: Normal reciprocal pattern noted. Pt. out antalgic pattern, no increase in symptoms. Pt. is currently I with gym exercises. He has been going to gym frequently without issues. He reports no problems with programing and with working machines as this point in time. he continues to report greatest symptoms at night after daily activities. Goal 1:: LTG: Pt. to be I with HEP for home and gym exercises. Goal Progress: Goal Met Goal 2:: STG: Pt. to report 0-2/10 pain in R hip and RLE with daily activities. Goal Progress: Goal Met Goal 3:: LTG: Pt. to have no pain with all recreational and gym activities. Goal Progress: Goal Met Goal 4:: LTG: Pt. to have increased BLE and core strength increased to 5-/5 and fair respectively. Goal Progress: Goal Met Plan: Pt. to be DC to HEP at this point in time. Pt. is continue with his gym exercises daily to x4 times per week as tolerated. If his symptoms to do not further resolve he is to follow back with physician. Discharge Comments: Pt. will be DC from PT this date. He is progressing with his strength as expected. He has good ROM of lumbar spine and B hips with no increase in symptoms. He does continue to have increased R medial knee pain and tingling at times, but is less frequent and intermittent. He is I with gym HEP for strengthening and stretching. He will be DC to this program this date. He is to follow up with physician if not further improving or symptoms worse. Pt. consents. If there are questions or concerns regarding this patient's physical therapy, please feel free to call me at [phone]. Thank you for the referral of this patient. Sincerely, Sander Boston, EAN Balance/Gait/Functional tests - Balance/Special Test Scores Lower Extremity Functional Score: 70
== END 2021-02-20 19:00 | disposition home or self-care (01) ==
LOC: PT 11:00
PROVIDERS: PCP Family Medicine; Visit Provider Family Medicine
DX: M25.551 Pain in right hip (principal)
CPT/HCPCS: 97110; 97161; 97164

== ENCOUNTER 2021-03-20 08:50 | Outpatient (CLI) | payer MEDICARE, OTHER, SELFPAY ==
--- NOTE | 2021-03-20 08:52 | CDU_ITS ---
Reason For Study: Bruits Rt. Velocities/BP Lt. Velocities/BP Prox CCA 77.3/17.3 cm/sec. Prox CCA 101.6/20.4 cm/sec. Mid CCA 78.6/22.6 cm/sec. Mid CCA 103.8/24.8 cm/sec. Dist CCA 60.4/16 cm/sec. Dist CCA 95.1/24.8 cm/sec. Prox ICA 149.9/20.4 cm/sec. Prox ICA 68.1/15.2 cm/sec. Mid ICA 66.3/17 cm/sec. Mid ICA 55.6/17.6 cm/sec. Dist ICA 59/18.8 cm/sec. Dist ICA 70.4/24.9 cm/sec. Rt. ICA/CCA = 1.94. Lt. ICA/CCA = 0.69. Prox ECA 156.5/16 cm/sec. Prox ECA 108.2/11.6 cm/sec. Rt. Vert. 20.9/7.3 cm/sec. Lt. Vert. 38.8/10.2 cm/sec. Right Extracranial There is heterogeneous, irregular atherosclerotic plaque noted in the right common carotid artery. There is heterogeneous, irregular atherosclerotic plaque noted in the right internal carotid artery. The atherosclerotic plaque causes acoustic shadowing. There is heterogeneous, irregular atherosclerotic plaque noted in the right external carotid artery. Antegrade flow is noted in the right vertebral artery. Left Extracranial There is heterogeneous, irregular atherosclerotic plaque noted in the left common carotid artery. There is heterogeneous, irregular atherosclerotic plaque noted in the left internal carotid artery. There is heterogeneous, irregular atherosclerotic plaque noted in the left external carotid artery. Antegrade flow is noted in the left vertebral artery. Procedure Carotid Duplex 60353. This is a Carotid Duplex examination using B-mode, color flow and specral Doppler. Exam performed in department. VL/Carotid Duplex Ultrasound Interpretation Summary Moderate (50-69%) stenosis right extracranial internal carotid. Mild (<50%) linda nosis left extracranial internal carotid. Flow within the vertebral arteries is antegrade bilaterally. Ordering Physician: Ronal Escobar Referring Physician: Yaya Ibarra MD Performed By: Candis Moreira RVT
--- NOTE | 2021-03-20 08:52 | ECHOCS_ITS ---
Reason For Study: MURMUR Procedure This was a 2D Doppler, Color Flow transthoracic echocardiogram. The study was technically difficult. Contrast injection was performed. Exam performed in department. Left Ventricle Normal LV size. Left ventricular systolic function is normal. The estimated ejection fraction is 65 %. No evidence for diastolic dysfunction. No regional wall motion abnormalities noted. Right Ventricle Normal RV size. Normal systolic function. Atria Normal left atrium. Normal right atrium. No doppler evidence for ASD. Mitral Valve There is no mitral annular calcification. Normal mitral valve. Trivial mitral valve insufficiency. Tricuspid Valve Normal tricuspid valve. Trivial tricuspid valve insufficiency. Right ventricular systolic pressure estimated to be 34 mmHg. Aortic Valve Trisinus/trileaflet aortic valve. Moderate diffuse aortic valve thickening. Moderate diffuse aortic valve calcification. Moderate to severe aortic valve stenosis. Trivial aortic valve insufficiency. Pulmonic Valve The pulmonic valve is not well visualized. Great Vessels Normal sized aortic root. Pericardium/Pleural No pericardial effusion. Medication 22 gauge I.V. with prn adaptor inserted into right arm. Diluted definity 2.0ml given slow IV push to enhance endocardial definition. MMode/2D Measurements & Calculations LVIDd: 3.7 cm IVSd: 1.2 cm LVOT diam: 2.0 cm LVIDs: 2.5 cm LVPWd: 1.2 cm RVDd: 3.4 cm FS: 30.4 % LVOT area: 3.1 cm2 Ao root diam: 3.4 cm LAV(MOD-bp): 48.3 ml LA A4 area: 18.6 cm2 LAV(MOD-bp) Indexed: 20.2 ml/m2 LAV(MOD-sp2): 50.2 ml LAV(MOD-sp4): 45.8 ml LA dimension(2D): 4.3 cm RA A4 area: 15.4 cm2 Doppler Measurements & Calculations MV E max jose: 71.0 cm/sec Lat Peak E' Jose: 7.3 cm/sec Med Peak E' Jose: 6.1 cm/sec MV A max jose: 104.7 cm/sec E/E' lat: 9.7 E/E' med: 11.7 MV E/A: 0.68 MV V2 max: 104.8 cm/sec Ao V2 max: 415.7 cm/sec LV V1 max: 137.2 cm/sec MV max P.4 mmHg Ao max P.3 mmHg LV V1 max P.5 mmHg MV V2 mean: 61.3 cm/sec Ao V2 mean: 293.3 cm/sec LV V1 mean P.0 mmHg MV mean P.7 mmHg Ao mean P.1 mmHg LV V1 mean: 94.1 cm/sec MV V2 VTI: 34.9 cm Ao V2 VTI: 90.8 cm LV V1 VTI: 30.4 cm MVA(VTI): 2.7 cm2 LELAND(I,D): 1.0 cm2 LELAND(V,D): 1.0 cm2 SV(LVOT): 93.5 ml PA V2 max: 106.7 cm/sec TR max jose: 278.1 cm/sec TR max P.9 mmHg MV P1/2t-pr_phl: 112.5 msec ECHO/Echo Complete W/ Contrast Interpretation Summary The study was technically difficult. Contrast injection was performed. Left ventricular systolic function is normal. The estimated ejection fraction is 65 %. Trivial mitral valve insufficiency. Trivial tricuspid valve insufficiency. Moderate to severe aortic valve stenosis. Trivial aortic valve insufficiency. Right ventricular systolic pressure estimated to be 34 mmHg. No evidence for diastolic dysfunction. Ordering Physician: Ronal Escobar Referring Physician: MERLYN THAYER Performed By: Shelia Valentine, REGGIE, RVT
== END 2021-03-20 23:59 | disposition home or self-care (01) ==
PROVIDERS: PCP Family Medicine; Referring Provider Internal Medicine Cardiovascular Disease; Visit Provider Internal Medicine Cardiovascular Disease
DX: I65.23 Occlusion and stenosis of bilateral carotid arteries (principal); I35.0 Nonrheumatic aortic (valve) stenosis; I25.10 Atherosclerotic heart disease of native coronary artery without angina pectoris; I10 Essential (primary) hypertension; E78.2 Mixed hyperlipidemia; Z95.1 Presence of aortocoronary bypass graft
CPT/HCPCS: 93306; 93880; Q9957; A4216; C8929

== ENCOUNTER 2021-04-15 10:17 | Outpatient (CLI) | payer MEDICARE, OTHER, SELFPAY | END 2021-04-15 23:59 | disposition home or self-care (01) | LOC: LABSPEC 10:20 | PROVIDERS: PCP Family Medicine; Visit Provider Family Medicine | DX: Z20.822 Contact with and (suspected) exposure to COVID-19 (principal) | CPT/HCPCS: 87635; U0003; U0005 ==

== ENCOUNTER 2021-05-11 08:48 | Outpatient (CLI) | payer MEDICARE, OTHER, SELFPAY ==
--- NOTE | 2021-05-11 08:51 | CT_ITS ---
STUDY: CT MAXILLOFACIAL SINUSES REASON FOR EXAM: Male, 81 years old. Persistent URI RADIATION DOSAGE (If Supplied By Facility): CTDIvol = ( 33.06 ) mGy, DLP = ( 796.66 ) mGycm TECHNIQUE: The patient was scanned in a multi detector CT scanner. High resolution axial imaging was performed without the administration of intravenous contrast material. Sagittal and coronal images were reconstructed. Individualized dose optimization techniques were used for this CT. COMPARISON: None. FINDINGS: FRONTAL SINUSES: Normal aeration, without mucosal inflammatory disease. ETHMOIDAL SINUSES: Normal aeration, without mucosal inflammatory disease. MAXILLARY SINUSES: Normal aeration, without mucosal inflammatory disease. SPHENOIDAL SINUSES: Normal aeration, without mucosal inflammatory disease. There is patency of the bilateral maxillary infundibuli with normal uncinate processes, ethmoid bullae, and hiatus semilunaris. Normal bilateral middle turbinates. Normal bilateral inferior turbinates. Normal midline nasal septum. There is patency of the bilateral nasal airways. The visualized osseous structures are normal. The visualized bilateral orbital contents are normal. Peripheral calcifications noted in the carotid artery bulbs. CT/Sinus/Facial Bone IMPRESSION: Normal CT examination of the maxillofacial sinuses. Electronically Signed: Micheal Ferreira MD at 10:19 EDT ,
== END 2021-05-11 23:59 | disposition home or self-care (01) ==
LOC: CT 08:49
PROVIDERS: PCP Family Medicine; Referring Provider Family Medicine; Visit Provider Family Medicine
DX: J39.9 Disease of upper respiratory tract, unspecified (principal)
CPT/HCPCS: 70486

== ENCOUNTER → 2021-09-18 | Outpatient (CLI) | payer MEDICARE, OTHER, SELFPAY ==
--- NOTE | 2021-09-18 09:45 | ECHOCS_ITS ---
Reason For Study: ASHD/CAD Procedure This was a 2D Doppler, Color Flow transthoracic echocardiogram. The study was technically difficult. Contrast injection was performed. Exam performed in department. Left Ventricle Based upon the 2D echocardiographic and contrast enhanced images obtained there appears to be grossly normal left ventricular size, wall motion, and systolic function. The estimated ejection fraction is 65 %. No evidence for diastolic dysfunction. Right Ventricle Normal RV size. Normal systolic function. Atria Normal left atrium. Normal right atrium. No doppler evidence for ASD. Mitral Valve There is no mitral annular calcification. Normal mitral valve. Trivial mitral valve insufficiency. Tricuspid Valve Normal tricuspid valve. Trivial tricuspid valve insufficiency. Right ventricular systolic pressure estimated to be 29 mmHg. Aortic Valve The aortic valve leaflets are not well visualized, however, there appears to be diffuse thickening, calcification, and partial restriction. Severe aortic stenosis. Pulmonic Valve The pulmonic valve is not well visualized. Great Vessels The aortic root is not well visualized. Pericardium/Pleural No pericardial effusion. Medication 22 gauge I.V. with prn adaptor inserted into left arm. Diluted definity 3ml given slow IV push to enhance endocardial definition. MMode/2D Measurements & Calculations LVIDd: 4.2 cm IVSd: 1.1 cm LVOT diam: 2.0 cm LVIDs: 2.7 cm LVPWd: 1.1 cm RVDd: 4.1 cm FS: 34.7 % LVOT area: 3.1 cm2 LAV(MOD-sp4): 44.3 ml LA A4 area: 19.0 cm2 RA A4 area: 17.3 cm2 Time Measurements MV dec time: 0.32 sec Doppler Measurements & Calculations MV E max anabella: 73.0 cm/sec MV V2 max: 103.6 cm/sec MV P1/2t max anabella: 103.6 cm/sec MV A max anabella: 98.3 cm/sec MV max P.3 mmHg MV P1/2t: 84.1 msec MV E/A: 0.74 MV V2 mean: 55.5 cm/sec MV dec slope: 360.8 cm/sec2 MV mean P.5 mmHg MV V2 VTI: 39.0 cm MVA(P1/2t): 2.6 cm2 MVA(VTI): 2.2 cm2 Ao V2 max: 405.7 cm/sec LV V1 max: 104.6 cm/sec SV(LVOT): 86.7 ml Ao max P.9 mmHg LV V1 max P.4 mmHg Ao V2 mean: 304.0 cm/sec LV V1 mean P.5 mmHg Ao mean P.9 mmHg LV V1 mean: 75.2 cm/sec Ao V2 VTI: 108.0 cm LV V1 VTI: 27.9 cm LELAND(I,D): 0.80 cm2 LELAND(V,D): 0.80 cm2 PA V2 max: 98.7 cm/sec TR max anabella: 255.7 cm/sec TR max P.2 mmHg ECHO/Echo Complete W/ Contrast Interpretation Summary The study was technically difficult. Contrast injection was performed. Based upon the 2D echocardiographic and contrast enhanced images obtained there appears to be grossly normal left ventricular size, wall motion, and systolic function. The estimated ejection fraction is 65 %. Trivial mitral valve insufficiency. Trivial tricuspid valve insufficiency. The aortic valve leaflets are not well visualized, however, there appears to be diffuse thickening, calcification, and partial restriction. Severe aortic stenosis. Right ventricular systolic pressure estimated to be 29 mmHg. No evidence for diastolic dysfunction. Ordering Physician: Ronal Escobar Referring Physician: Ronal Escobar Performed By: Sumit Troncoso [facility]
== END | disposition home or self-care (01) ==
LOC: CVS 09:45
PROVIDERS: PCP Family Medicine; Referring Provider Internal Medicine Cardiovascular Disease; Visit Provider Internal Medicine Cardiovascular Disease
DX: I25.10 Atherosclerotic heart disease of native coronary artery without angina pectoris (principal)
CPT/HCPCS: 93306; Q9957; A4216; C8929

== ENCOUNTER 2021-11-01 06:45 | Day surgery (SDC) | payer MEDICARE, OTHER, SELFPAY ==
--- NOTE | 2021-10-24 10:30 | RAD_ITS ---
EXAM: XR CHEST, 2 VIEWS CLINICAL INDICATION: AV Stenosis TECHNIQUE: Frontal and lateral views of the chest. This report was created using [employer] report generation technology. COMPARISON: 06/07/2018 FINDINGS: LUNGS AND PLEURAL SPACES: Unremarkable. No consolidation or edema. No pneumothorax. No effusion. HEART: Unremarkable. Cardiac silhouette not enlarged. MEDIASTINUM: Central airways and mediastinal contour are unremarkable. BONES/JOINTS: Unremarkable. SOFT TISSUES: Unremarkable. RAD/Chest PA and Lateral IMPRESSION: No radiographic evidence of acute cardiopulmonary disease. Electronically Signed: Jann Sims MD at 3:04 EDT ,
[2021-10-24 10:48] LABS: Absolute Lymphocyte Count 2.76 X10^3/uL (0.83-4.51); Absolute Neutrophil Count 4.2 X10^3/uL (2.0-7.7); Basophil% 1.3 % (0-1); Eosinophil# 0.18 X10^3/uL; Eosinophils% 2.3 % (0-5); Hematocrit 42.8 % (40-54); Hemoglobin 14.9 g/dL (13.0-16.5); Lymphocyte # 2.76 X10^3/ul (0.83-4.51); Lymphocyte % 35.1 % (19-41); Mean Corp Hgb Conc 34.8 g/dL (32-36); Mean Corpuscular Hgb 32.8 pg (27.0-32.0); Mean Corpuscular Volume 94.3 fL (80-94); Mean Platelet Vol. 9.1 fl (6.2-12.0); Monocyte# 0.65 X10^3/uL; Monocyte% 8.3 % (0-10); NRBC Flagged by Analyzer 0 % (0-5); Neutrophil # 4.15 X10^3/uL (2.7-7.7); Neutrophil % 52.7 % (47-70); Platelet Count 287 K/mm3 (150-450); RBC Distribution Width CV 12.6 % (11.6-14.6); RBC Distribution Width SD 43.5 fl (35.1-43.9); Red Blood Count 4.54 M/mm3 (4.6-6.2); White Blood Count 7.9 K/mm3 (4.4-11.0)
[2021-10-24 10:56] LABS: Prothrombin Time (Protime)PT. 12.8 SECONDS (11.7-14.9)
[2021-10-24 11:19] LABS: Anion Gap 7 (5-15); BUN 21 mg/dL (7-18); BUN/Creat Ratio 19.1 RATIO (10-20); Calcium,Total 9.4 mg/dL (8.5-10.1); Chloride 102 mmol/L (98-107); EST Glomerular Filtration Rate 69 mL/min (>60); Est Glom Filt Rate - Afr Amer 83 mL/min (>60); Glucose 131 mg/dL (74-106); Sodium Level 138 mmol/L (136-145)
--- NOTE | 2021-10-28 12:10 | PCM.HP.BLA ---
History and Physical Date of Admission: 11/01/21 [facility] [address] [place] [address] OFFICE VISIT Date of Service:? 10/03/21 MR#: [id number] Acct: [id number] Name:GWEN SHEPARD Rep #: [id number] : 1940 ? Provider: Dr. Ronal Escobar MD Age/Sex:? 81/M ? Location: [facility] Status: Signed HPI HPI History of Present Illness Surgical H&P: Yes Details: This is a 81-year-old white male who presents today for outpatient cardiovascular follow-up of his history of CAD, CABG (2005 with AUGUSTINE to the LAD, SVG to the second OM, and SVG to the PDA), aortic valve disease/stenosis, carotid artery disease, hyperlipidemia, and hypertension.? Overall since his last visit of 05-02-2020 he states he appears to be doing well.? He remains active at home and at the local outpatient exercise facility. He does note that when he exerts himself such as going up stairs or pushing the lawnmower he can start to sound some chest tightness as well as feeling somewhat more short of breath.? He states this usually goes away quickly when he stops. There has been no orthopnea or PND. The patient denies ongoing peripheral pitting edema. The patient denies the use of sublingual nitroglycerin use. He had lipid labs performed on 12-27-2020.? His total cholesterol was 160 with an LDL of 98 and an HDL of 36.? His triglycerides were 132. He has undergone previous noninvasive and invasive cardiovascular studies.? The results are noted below.? They were reviewed with him. The studies have included a recent transthoracic echocardiogram.? Based upon that study he does appear to have evidence now of severe aortic valve stenosis as his peak velocity is greater than 4 m/s, his mean gradient is greater than 40 mmHg, and his aortic valve area is less than 1 cm?. In the office today he had an ECG.? He continues with an underlying sinus rhythm with a right bundle branch block pattern. Intake Vital Signs ? 03/06/2208:56 10/03/2212:29 10/03/2212:31 Height 6 ft 1 in 6 ft 1 in 6 ft 1 in Weight: ? ? 262 lb 5 oz BMI ? ? 34.6 BP ? ? 132/60 H Blood Pressure Location ? ? Lt brachial Position ? ? Sitting Respiration ? ? 16 Pulse ? ? 80 Pulse Source ? ? 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 Processing Required: No Accompanied by: Self Allergies No Known Allergies Allergy (Verified 10/03/21 13:31) Medications aspirin 81 mg tablet,delayed release (Adult Low Dose Aspirin) 81 mg PO QDAY 04/09/17 [History Confirmed 10/03/21] atorvastatin 20 mg tablet 20 mg PO QHS cholesterol 04/09/17 [History Confirmed 10/03/21] nitroglycerin 0.4 mg sublingual tablet (Nitrostat) 0.4 mg sublingual Q5M PRN chest pain 04/09/17 [History Confirmed 10/03/21] ramipril 2.5 mg capsule 2.5 mg PO QDAY heart 04/09/17 [History Confirmed 10/03/21] hydrocortisone 1 % topical cream 1 applic topical QHS PRN dry skin on nose 03/08/18 [History Confirmed 10/03/21] prednisolone acetate 1 % eye drops,suspension 1 drp ophthalmic (eye) DAILY 03/08/18 [History Confirmed 10/03/21] ascorbic acid (vitamin C) 500 mg tablet 500 mg PO DAILY 05/02/20 [History Confirmed 10/03/21] cholecalciferol (vitamin D3) 50 mcg (2,000 unit) tablet 50 mcg PO DAILY 05/02/20 [History Confirmed 10/03/21] cyanocobalamin (vitamin B-12) 1,000 mcg capsule 1,000 mcg PO DAILY 05/02/20 [History Confirmed 10/03/21] PFSH Medical History? Atherosclerosis of [place] coronary artery of [place] heart without angina pectoris Atherosclerotic heart disease of [place] coronary artery without angina pectoris Bilateral carotid artery disease Carotid artery disease Carotid bruit Essential hypertension Hyperlipidemia Mixed hyperlipidemia Non-rheumatic tricuspid valve insufficiency Nonrheumatic aortic (valve) stenosis Nonrheumatic aortic valve stenosis Premature atrial contractions Right bundle branch block Stenosis of right carotid artery Surgical History? History of colonoscopy (~04/2020) History of coronary artery bypass graft x 3 History of coronary artery bypass graft x 3 (~11/17/05) Transplanted cornea Family History? Father CAD (coronary artery disease)Mother Breast cancerBrother DiabetesBrother CancerSister Cancer ?? ? Ovarian cancer Social History? Smoking Status:? Former smoker how long ago did patient quit smoking:? 1969 alcohol intake:? current alcohol intake frequency: a few times a week Alcohol type: wine and hard liquor substance use type:? does not use caffeine:? Yes (3-4 servings per day) Type: coffee what type of physical activity do you participate in:? other details: [employer], tredmill frequency:? 3-4 times per week duration:? 45-60 minutes/day seatbelt use:? always do you feel safe at home:? Yes ROS Const Const: Negative for fatigue, weakness, body ache, fever(s), headache(s), chills, frequent falls, night sweats, daytime sleepiness, difficulty sleeping, excessive sweating, weight gain, weight loss, increased appetite, poor appetite, anorexia or other Eyes Eyes: Negative for blurry vision or double vision ENT ENT: Negative for headache(s), dizziness or balance problems Cardio Chest Pain: Yes Character: tightness and other (heaviness) Onset: exercise (heavy exertion) Location: mid sternal and left chest Duration: brief Palpitations: No Edema: None Muscle aches with walking: None Resp Respiratory: Positive for SOB with activity (climbing stairs a couple of times ); Negative for SOB at rest, SOB orthopnea\SOB lying down, Cough, Coughing up blood/hemoptysis, chest congestion, pain on inspiration, snoring, stridor, wheezing, crackles, paroxysmal nocturnal dyspnea or other Musc Musc: Negative for muscle aches/ myalgia, muscle weakness, joint pain or balance problems Neuro Neuro: Negative for dizziness, lightheadedness, near syncope, syncope, orthostatic symptoms, frequent falls, headache(s), weakness, confusion, memory loss, restless legs, blurry vision, double vision, vertigo, seizures, lack of coordination or other Endo Endo: Negative for fatigue or excessive sweating Cardiology Exam Const Appearance: cooperative, healthy appearing, comfortable, no acute distress, well developed and well groomed Nutritional Appearance: overweight Orientation: alert, awake and oriented x3 Head Head: normal to inspection, normocephalic and atraumatic Ears: hearing grossly normal bilaterally Nose: external nose normal Face and Sinus: face symmetric Eyes Eyelids: eyelids normal Conjunctivae: conjunctivae normal Pupils: PERRL EOM: EOM intact bilaterally Neck Neck: normal visual inspection Carotids: normal carotid upstroke carotid endarterectomy: Bilateral Chest Chest inspection: normal inspection of the chest, symmetric chest movement and normal respiratory effort Auscultation: Bilateral: Clear to Auscultation Cardio Palpation: normal PMI Rate: regular rate Rhythm: regular rhythm Heart sounds: S1 normal, murmur and diminished A2 Murmur: Grade 2/6, late systolic, LLSB, LVOT, sternal notch and radiates to carotids GI GI: normal to inspection, soft and bowel sounds present Neuro General: patient alert, patient awake, patient oriented x3 and moves all extremities Skin Skin: no rashes or lesions noted Extremities Pulses: Normal: Right Radial Pulse and Left Radial Pulse Lower Extremity Edema: None: Bilateral Psych Psychological: normal affect Supplemental Info Supplemental Information Echocardiogram 04/06/2018: Interpretation Summary The study was technically difficult. Contrast injection was performed. Left ventricular systolic function is normal. The estimated ejection fraction is 60 %. Trivial mitral valve insufficiency. Mild eccentric tricuspid valve insufficiency. Moderate aortic stenosis. Mild (1+) pulmonic valve insufficiency. Calcified aortic root. Right ventricular systolic pressure estimated to be 32 mmHg. Transmitral diastolic flow velocities suggest diastolic dysfunction (pseudonormal pattern). Echocardiogram from 11/17/2019: Interpretation Summary The study was technically difficult. Contrast injection was performed. Left ventricular systolic function is normal. The estimated ejection fraction is 65 %. Trivial mitral valve insufficiency. Trivial tricuspid valve insufficiency. Moderate aortic stenosis. Right ventricular systolic pressure estimated to be 26 mmHg. No evidence for diastolic dysfunction. Echocardiogram: 09/18/2021 Interpretation Summary The study was technically difficult. Contrast injection was performed. ? Based upon the 2D echocardiographic and contrast enhanced images obtained there appears to be grossly normal left ventricular size, wall motion, and systolic function. The estimated ejection fraction is 65 %. Trivial mitral valve insufficiency. Trivial tricuspid valve insufficiency. The aortic valve leaflets are not well visualized, however, there appears to be diffuse thickening, calcification, and partial restriction. Severe aortic stenosis. Right ventricular systolic pressure estimated to be 29 mmHg. No evidence for diastolic dysfunction. Cardiovascular stress test from December 2013 It was negative for stress-induced myocardial ischemia and previous myocardial injury/infarction.? Reported ejection fraction was 70%. Stress Test Report Date: 11-17-2019 Procedure: Exercise tolerance test/imaging study Indications: CAD; CABG; preoperative cardiovascular evaluation Consent: Per the patient Procedure: The patient exercised on a Clemente protocol for 6 minutes completing Stage II achieving a peak heart rate of 133 bpm (93% predicted maximal heart rate) with a peak blood pressure 148/80 mmHg and a peak MET capacity of 7 METs. The baseline ECG demonstrated sinus rhythm; right bundle branch block.? The peak exercise ECG demonstrated no obvious ECG changes. There were no cardiac dysrhythmias pretest, during exercise, or recovery. The functional capacity was considered average. There was no complaint of chest discomfort during exercise or recovery. The examination was discontinued secondary to dyspnea and leg discomfort. Impression: 1.? Technically adequate (percent predicted maximal heart rate greater than 85%) exercise tolerance test 2.? Peak exercise ECG with continued right bundle branch block pattern with no obvious ECG changes 3.? There were no cardiac dysrhythmias pretest, during exercise, or recovery 4.? Nuclear images pending Myocardial perfusion imaging study: Technique: The patient was injected with 15.0 mCi of technetium 99m Cardiolite and subsequently rest SPECT Cardiolite nuclear imaging was obtained in the horizontal long, vertical long, and short axis views. The patient exercised on a Clemente protocol for 6 minutes completing Stage II achieving a peak heart rate of 133 bpm (93% predicted maximal heart rate) with a peak blood pressure 148/80 mmHg and a peak MET capacity of 7 METs. The patient was injected with 44.0 mCi of technetium 99m Cardiolite and subsequently stress SPECT Cardiolite nuclear imaging was obtained in the horizontal long, vertical long, and short axis views.? A gated Cardiolite study at peak stress was obtained. Interpretation: Rest and stress SPECT Cardiolite nuclear imaging status post realignment, normalization, and attenuation correction, demonstrates the appearance of relative uniform tracer uptake and myocardial perfusion appearing within normal limits.? There is end systolic thickening and brightening.? The gated Cardiolite study demonstrates myocardial thickening and inward wall motion.? The reported LVEF is 66%. Impression: 1.? Rest and stress SPECT Cardiolite nuclear imaging demonstrate relative uniform tracer uptake and myocardial perfusion appearing within normal limits. 2.? The gated Cardiolite study reports an LVEF of 66%. Heart catheterization from October 2005 The LV ejection fraction of 60%, left main is angiographically normal, LAD with 50% stenosis, LCx with 95% stenosis, RCA with 25% stenosis, and right posterior descending artery with proximal 75% stenosis.? It was felt that patient was not a candidate for catheter based revascularization and he underwent bypass surgery. CAB11/14/2005: [facility] AUGUSTINE to LAD SVG to OM2 SVG to RPDA Carotid Duplex U/S from 11/17/2019: Interpretation Summary Moderate (50-69%) stenosis right extracranial internal carotid. Mild (<50%) stenosis left extracranial internal carotid. Flow within the vertebral arteries is antegrade bilaterally. Carotid Duplex U/S from 12/14/2018: Interpretation Summary Moderate (50-69%) stenosis right extracranial internal carotid. Mild (<50%) stenosis left extracranial internal carotid. Flow within the vertebral arteries is antegrade bilaterally. Carotid Duplex: 03/20/2021 Interpretation Summary Moderate (50-69%) stenosis right extracranial internal carotid. Mild (<50%) stenosis left extracranial internal carotid. Flow within the vertebral arteries is antegrade bilaterally. Labs: ?? ? LDL Cholesterol 98 mg/dL (0-130) ?? ? HDL Cholesterol 36 mg/dL (40-) L ?? ? Triglycerides 132 mg/dL (-199) ?? ? VLDL Cholesterol 26 mg/dL (5-40) Diagnostics: ?? ? Electrocardiogram ? Echocardiogram ? Stress Test NM ? Stress Test ? Chest X-Ray ? Pulmonary: ?? ? No Data to Display Assessment and Plan Assessment and Plan (1) Atherosclerosis of [place] coronary artery of [place] heart without angina pectoris: ?Status:?Chronic ?Comment: S/P CABG in 2005 with AUGUSTINE to LAD, SVG to second obtuse marginal of LCx, and SVG to PDA of the RCA; ?Plan: At the present time he will continue medical therapy. It was felt prudent he undergo further evaluation with a diagnostic cardiac catheterization to reassess his coronary anatomy and graft anatomy in preparation for a tertiary care center evaluation for a possible TAVR procedure. (2) History of coronary artery bypass graft x 3: ?Status:?Resolved ?Comment: CABGx3-AUGUSTINE to LAD, SVG to second obtuse marginal of LCx, and SVG to PDA of the RCA;11/17/05 ?Plan: Again based upon the patient's symptoms and his objective findings it was recommended he continue medical therapy and proceed with further evaluation with diagnostic cardiac catheterization. Depending upon the findings he may or may not require additional catheter-based revascularization therapy in addition to consideration for tertiary care center evaluation for a TAVR. (3) Nonrheumatic aortic valve stenosis: ?Status:?Chronic ?Plan: The patient's aortic valve appears to have progressed with all 3 parameters being compatible with severe aortic valve stenosis. A lengthy discussion was held with him with respect to the aortic valve anatomy and physiology and the natural progression of the disease process. At the moment he will continue medical therapy.? He is in agreement to proceed with further cardiac evaluation which would lead to a tertiary care center evaluation for consideration for TAVR. (4) Bilateral carotid artery disease: ?Status:?Chronic ?Qualifiers: ?Carotid artery disease type:?stenosis? Qualified Code(s):?I65.23 - Occlusion and stenosis of bilateral carotid arteries ?Plan: He did have his carotid arteries evaluated earlier this year. He continues to have mild to moderate disease.? It appears unchanged compared to previous reports. He will continue his medical management. (5) Mixed hyperlipidemia: ?Status:?Chronic ?Plan: He will continue risk factor modification and medical therapy (6) Essential hypertension: ?Status:?Chronic ?Plan: His blood pressure appears to be preserved. He will continue medical therapy. ? ? ? Orders: Orders 12 Lead EKG performed by BMS Today I25.10 - Atherosclerotic heart disease of [place] coronary artery without angina pectoris, Z95.1 - Presence of aortocoronary bypass graft ? Left Heart Cath w/Grafts Today E78.2 - Mixed hyperlipidemia, I10 - Essential (primary) hypertension, I25.10 - Atherosclerotic heart disease of [place] coronary artery without angina pectoris, I35.0 - Nonrheumatic aortic (valve) stenosis, I65.23 - Occlusion and stenosis of bilateral carotid arteries, Z95.1 - Presence of aortocoronary bypass graft ? Basic Metabolic Profile (BMP) Today E78.2 - Mixed hyperlipidemia, I10 - Essential (primary) hypertension, I25.10 - Atherosclerotic heart disease of [place] coronary artery without angina pectoris, I35.0 - Nonrheumatic aortic (valve) stenosis, I65.23 - Occlusion and stenosis of bilateral carotid arteries, Z95.1 - Presence of aortocoronary bypass graft ? Partial Thromboplast Time Today E78.2 - Mixed hyperlipidemia, I10 - Essential (primary) hypertension, I25.10 - Atherosclerotic heart disease of [place] coronary artery without angina pectoris, I35.0 - Nonrheumatic aortic (valve) stenosis, I65.23 - Occlusion and stenosis of bilateral carotid arteries, Z95.1 - Presence of aortocoronary bypass graft ? Prothrombin Time w/INR Today E78.2 - Mixed hyperlipidemia, I10 - Essential (primary) hypertension, I25.10 - Atherosclerotic heart disease of [place] coronary artery without angina pectoris, I35.0 - Nonrheumatic aortic (valve) stenosis, I65.23 - Occlusion and stenosis of bilateral carotid arteries, Z95.1 - Presence of aortocoronary bypass graft ? CBC W/Diff, Automated Today E78.2 - Mixed hyperlipidemia, I10 - Essential (primary) hypertension, I25.10 - Atherosclerotic heart disease of [place] coronary artery without angina pectoris, I35.0 - Nonrheumatic aortic (valve) stenosis, I65.23 - Occlusion and stenosis of bilateral carotid arteries, Z95.1 - Presence of aortocoronary bypass graft ? Chest PA and Lateral Today E78.2 - Mixed hyperlipidemia, I10 - Essential (primary) hypertension, I25.10 - Atherosclerotic heart disease of [place] coronary artery without angina pectoris, I35.0 - Nonrheumatic aortic (valve) stenosis, I65.23 - Occlusion and stenosis of bilateral carotid arteries, Z95.1 - Presence of aortocoronary bypass graft ? Plan Details Additional Comments: The above was discussed with him and he was agreeable to this approach. Thank you for allowing me to participate in the care of your patient.? Please don't hesitate to call if any issues arise. This note was generated using a voice recognition system and there may be incorrect words, spelling or punctuation that were not noted when reviewing the office note prior to saving. Follow Up: ? ? 3 Months (PFM ) COVID (Procedure Consent) Procedure Criteria Procedure Criteria: Yes Elective The surgeon/proceduralist and patient have discussed in detail the risk of exposure to and/or potential harm posed by the COVID-19 virus with having a surgery/procedure at this time versus the risk of? delaying the surgery/procedure. It is not possible to know either the risk of delaying the surgery or procedure or chance of getting an infection with perfect accuracy, but a joint decision was made between the patient and the surgeon/proceduralist ?to proceed at this time with the scheduled surgery/procedure as indicated on the consent form. Coding Level of Care Code Off vis,est,level 5 Diagnoses Atherosclerosis of [place] coronary artery of [place] heart without angina pectoris? I25.10 History of coronary artery bypass graft x 3? Z95.1 Nonrheumatic aortic valve stenosis? I35.0 Bilateral carotid artery disease? I65.23 ? ? ? Carotid artery disease type: stenosis Mixed hyperlipidemia? E78.2 Essential hypertension? I10 Coding Level of Care Code Off vis,est,level 5 Diagnoses Atherosclerosis of [place] coronary artery of [place] heart without angina pectoris? I25.10 History of coronary artery bypass graft x 3? Z95.1 Nonrheumatic aortic valve stenosis? I35.0 Bilateral carotid artery disease? I65.23 ? ? ? Carotid artery disease type: stenosis Mixed hyperlipidemia? E78.2 Essential hypertension? I10 10/03/21 1432 <Electronically signed by Ronal Escobar MD> Date Ronal Escobar MD Cosigner Signature: Date (if applicable) CC:? Dr. Yaya Ibarra MD ~ Assessment & Plan Addt'l Comments I have re-examined the patient. There are no clinical changes since date of exam
[2021-10-31 08:16] VITALS: BMI 34.5
--- NOTE | 2021-11-01 09:26 | CL.D_ITS ---
Patient Name: GWEN ARANDA Study Date: 11/01/2021 Performing: Ronal Escobar MD Ht: 73 inches 185.42 cm : 1940 Wt: 262 lbs 118.84 kg Age: 81 Gender: male BSA: 2.41 PROCEDURE(S) PERFORMED DC11-([id number])AO ROOT ANGIO WITH HEART CATH DC04-(16164)LHC/COR/CABG CLINICAL PROFILE AND INDICATIONS Indications: Valvular Disease, Pre-Operative Evaluation Heart Failure: None Stress/Imaging Stress/Image Study Performed: No Angina Classification Anginal Classification w/in 2 Weeks: Anginal Equivalent Dyspnea CAD Presentations: Other: dyspnea on exertion CONCLUSIONS Hughes Multivessel CAD AUGUSTINE to LAD: patent SVG to OM2: patent SVG to RPDA: patent Aortic root: calcified Aortic valve: calcified RECOMMENDATIONS Risk factor modification Medical therapy Surgery consult for valvular disease DESCRIPTION OF PROCEDURE The patient arrived to the procedure lab. The risks and benefits of the procedure as well as a full description of our services here and current unavailability of surgical backup were fully explained to the patient and/or their significant other prior to the catheterization. The Timeout was completed, verifying the correct patient and procedure. The patient's procedural site was prepped and draped in the usual fashion. Local anesthetic was given subcutaneously to right groin region with Lidocaine 2%. Using a modified Seldinger technique, arterial access was obtained via the right femoral artery, a 4Fr sheath was inserted Left Coronary Artery selective angiography was performed in multiple views using a 4 Fr. JL5 catheter. Right Coronary Artery selective angiography was then performed in multiple views using a 4 Fr. 3DRC catheter. Saphenous Vein graft to the OM 2 selective angiography was performed in multiple views using a 4 Fr. 3DRC catheter. Saphenous Vein graft to the RPDA selective angiography was performed in multiple views using a 4 Fr. 3DRC catheter. Left internal mammary artery graft to the LAD selective angiography was performed in multiple views using a 4 Fr. IM catheter. Ascending (root) aorta selective angiography was then performed in single view using a 4 fr. straight pigtail catheter.. Ascending (root) aorta selective angiography was then performed in single view using a 4 fr. straight pigtail catheter..The arterial sheath was pulled and manual compression applied until hemostasis is achieved. CORONARY ANGIOGRAPHY DOMINANCE: Right Dominant LEFT HEART ASSESSMENT Left Ventricular Ejection Fraction: Not assessed LEFT MAIN: Moderate calcification, is occluded LEFT ANTERIOR DESCENDING ARTERY: PROX LAD: Moderate calcification CIRCUMFLEX ARTERY: PROX CIRC: Moderate calcification RIGHT CORONARY ARTERY: Mild luminal irregularities less than 30% MID RCA: 75 % Stenosis GRAFTS: AUGUSTINE graft to the Mid LAD is patent and s/p AUGUSTINE graft attachment: mid LAD 50% stenosis Saphenous Vein graft to the 2nd OM is patent with no angiograhically significant appearing disease distal to the graft attachment Saphenous Vein graft to the RPDA is patent with no angiographically significant appearing disease distal to the graft attachment VALVE FINDINGS: Aortic Valve Calcification - moderate - severe calcified AORTIC ROOT: Calcified calcified COMPLICATIONS No Complications PROCEDURE MEDICATIONS Versed 1 mg IV Fentanyl 50 mcg IV Oxygen: 2 L/min via nasal cannula Baby Aspirin (81mg) 1 Tabs PO @ 11/01/2021 07:08:33 SUMMARY OF HEMODYNAMIC DATA Time AIR REST ECG 07:01:07 AO 110/62 (83) SA 08:21:38 AO 126/70 (95) 08:44:20 Signed By Ronal Escobar MD On 11/01/2021 09:25:49 Ronal Escobar MD
== END 2021-11-01 13:05 | disposition home or self-care (01) ==
PROVIDERS: PCP Family Medicine; Referring Provider Internal Medicine Cardiovascular Disease; Visit Provider Internal Medicine Cardiovascular Disease
DX: I25.10 Atherosclerotic heart disease of native coronary artery without angina pectoris (principal); I35.0 Nonrheumatic aortic (valve) stenosis; I65.23 Occlusion and stenosis of bilateral carotid arteries; I10 Essential (primary) hypertension; E78.2 Mixed hyperlipidemia; E66.3 Overweight; Z68.34 Body mass index [BMI] 34.0-34.9, adult; Z95.1 Presence of aortocoronary bypass graft; Z79.82 Long term (current) use of aspirin; Z79.899 Other long term (current) drug therapy; Z87.891 Personal history of nicotine dependence
CPT/HCPCS: 71046; 80048; 85025; 85610; 85730; 93455; 93567; 99152; 99153; J7040; Q9967; C1769; C1894

== ENCOUNTER → 2022-01-22 | Outpatient (CLI) | payer MEDICARE, OTHER, SELFPAY | END | disposition home or self-care (01) | PROVIDERS: PCP Family Medicine; Visit Provider Family Medicine | DX: Z20.822 Contact with and (suspected) exposure to COVID-19 (principal) | CPT/HCPCS: 87635; U0003; U0005 ==

== ENCOUNTER → 2022-03-10 | Outpatient (CLI) | payer MEDICARE, OTHER, SELFPAY ==
--- NOTE | 2022-03-10 13:10 | CR.ITP_ITS ---
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 @ [facility] Secondary Diagnosis: Obesity, HTN, HLD, RBBB, CABG-2005 Personal Learning Style:: Audio/Visual, Written Barriers to Learning: Vision Impairment Stage of change r/t lifestyle modifications:: Action Gave educational material for:: Treating Heart Disease, Emotions & Heart Disease, Stress Management & Relaxation, Sleep Disorders & Heart Disease, How The Heart Works, What it means to have Heart Disease, How Coronary Artery Disease is Diagnosed, Heart Procedures, What Heart Medications Do, Risk Factors & Modifications, Living an Active Life, Nutrition - Education/Goals Individual Counseling: Initial Assessment: Abnormal Cholesterol Levels, High Blood Pressure, Overweight/Obesity Cardiac Rehabilitation Goals: 1. Maintain the individual as the primary focus of care. 2. To improve the patient's quality of life. 3. Identification of cardiac risk factors and provide cardiac risk factor management. 4. Enhance the psychosocial status of the patient. 5. Reconditioning enough to allow the patient to resume customary activities. 6. Control symptoms of cardiac disease Personal Goals: Initial Assessment: Improve energy level, Improve muscle strength and endurance, Improve diet and eating habits (eat healthier) Scale for measuring improvement of personal goals: Enter appropriate number in Comments. 2 = Unchanged. 3 = Slightly Better. 4 = Moderate Improvement. 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, RBBB Current Physical Activity or Exercising minutes: Sits < 3 hours daily very active - Outcomes & Goals Goals:: Verbalizes understanding of THR, RPE & goal METS by session 6, Documents in home exercise log/reports 30 min aerobic 5 day/wk by DC, Demonstrates accurate pulse taking by DC - Intervention & Plan Exercise Program Goals: Instruct on personal THR & RPE, Instruct on MET level & personal MET goal, Show patient to take own pulse /validate performance until accurate, Instruct on home exercise - Physical Activity Home Exercise Physical Activity - Home Exercise: Safe Exercise, Warm-up, Self-monitoring, Cool-Down, Home Exercise > 30 min Daily, Sitting Time <3 hours/daily - Outcomes & Goals Outcomes/Goals: Demonstrates correct Warm-up/exercise Cool-Down (S3) if = 2.5 METs, Verbalizes symptoms of exercise intolerance by Session 3 (S3), Demonstrate safe equipment use (S3) & follows exercise prescrition (6) - Intervention & Plan Plan/Intervention: Instruct warm-up & cool-down if exercising at > 2 METs, Instruct on symptoms of exercise intolerance & actions to take, Instruct & monitor on saf, Assess intial functional capacity & safety risk Nutrition - Initial Assessment - Program Goals Nutrition Program Goals: LDL <100 optimal. 100 - 129 Near optimal. 130 - 159 Borderline High. 160 - 189 High. Total Cholesterol <200 desirable. 200 - 239 Borderline High. >/= 240 High. HDL < 40 Low >/=60 High. Triglycerides <150 desirable. <199 optimal. VlDL 5 - 40. HgbA1C <7%. BMI <25 Patient has diagnosis of Hyperlipidemia (ICD E78)?: Yes - Visit Date of Assessment:: 03/10/22 Session #:: 0 - pre-cardiac rehab evaluation - Cholesterol/Lipids (Other Core Measures) Triglycerides (mg/dL): 0 - labs not available from [facility] Determine presence & major risk factors that modify LDL goal: Hypertension or hypertensive medication, Age men > 45 years; women >/= 55 years Outcomes/Goals: Pt IDs own risk factors & lifestyle modifications by Session 10, Verbalizes symptoms of angina & response by session 3., Pt independently manages Intervention/Plan: Instruct on personal lipid levels & lipid goals/NCEP guidelines, Instruct on cholesterol Referral to dietitian:: Yes - Medical Nutrition & Why Weight program - Diabetes (Other Core Measures) Diabetes Type: Not Applicable - Weight Mgt (Other Care) Not Applicable: No Height: 6 ft Weight:: 253 lb BMI: 34.3 Diagnosis Overweight/Obesity BMI> 30% ICD-10 E66: Yes Diagnosis High BMI/Morbid Obesity BMI> 35% ICD-10 Z68: No Outcomes/Goals: Pt sets, maintains & shows weight loss goal & trend during rehab Intervention/Plan: Instruct on ideal BMI & set weight loss goal w/patient, Assist pt to ID & incorporate diet changes for weight loss by S9, Refer to Structured Weight Loss program as appropriate, Encourage goal of using 250- 300dcal per session for weight loss - Healthy Eating Habits Will attend diet classes:: Yes Outcomes/Goals:: Consume diet rich in vegs,fruits,whole grain/high fiber,fish,lean meat, Limit sat/trans fats,cholesterol & added salts & sugars Intervention/Plan:: Assess current eating habits - Education Gave educational materials for:: Healthy eating Nutrition - 30-Day Assessment Nutrition - 60-Day Assessment Nutrition - 90-Day Assessment Nutrition - Final Assessment Core - Initial Assessment - Visit Date of Eval: 03/10/22 Session #:: 0 - Pre-cardiac rehab evaluation - Medication Compliance Preventative Medication(s):: Aspirin, Statin/lipid, Beta rome H/O mental health issues: depression, anxiety, or addiction?: No Doesn?t believe in the benefits of treatment?: No Believes medications are unnecessary or harmful?: No Has a concern about medication side effects?: No Expresses concern over the cost of medications?: No Outcomes/Goals: Verbalizes medications,desired effect & common side effects @ DC, Pt self-reports following medication regimen, Keeps card in wallet w/medications listed by DC Interventions/plans: Instruct on medication effects & side effects, Review medication list w/patient every two weeks, Instruct importance of taking meds as ordered & assist problem solving - Tobacco Use Tobacco Use: Non-smoker - Hypertension Hypertension Diagnosis:: Hypertension ICD-10 I10 Resting Blood Pressure:: 124/68 [place] [employer] Hypertension Guidelines: [place] [employer] Hypertension Guidelines. Normal BP Less than 120/80 Outcomes/Goals: Able to verbalize/achieve optimal blood pressure <130/80, Incorporates diet changes & exercise for blood pressure control by DC Interventions/plan: Instruct on optimal blood pressure, hypertension & medications, Instruct on effects of sodium, alcohol, stress, exercise &hypertension - Tobacco Cessation Referral Smoking Cessation Referral:: No Individual Education/Counseling:: No Education Schedule Given:: Yes Core - 30-Day Assessment Core - 60-Day Assessment Core - 90 Day Assessment Core - Final Assessment Psychosocial - Initial Assess - VIsit Date of Eval: 03/10/22 Session #:: 0 - Pre-cardiac rehab evaluation Not Applicable: Yes History of previous Mental disease:: No - Psychosocial Test Tool Used:: [employer] Power QOL Cardiac, PHQ-9 Questionnaire phq-9 Severity: Severity. 1-4 Minimal Depression. 5-9 Mild Depression. 10-14 Moderate Depression. 15-19 Moderately Sever Depression. 20-27 Severe Depression. Rule: - Referral to Behavioral Health PS - Interventions: Yes Attend Stress Management Classes, No Referral to Behavioral Health if PHQ-9 score >9:, No Referral to [facility] - Outcomes/Goals: See list Psychosocial Outcomes/Goals:: ID's personal stressors & 2 strategies to manage stress by discharge - Intervention/Plan: See List Interventions/Plan:: Assess stressors,coping strategies & signs of derpression on admission, Instruct/assist pt to develop coping & personal stress Mgt strategies, Instruct patient to recognize signs & symptoms of depression, Instruct patient to recog Psychosocial - 30-Day Assess Psychosocial - 60-Day Assess Psychosocial - 90-Day Assess Psychosocial - Final Assessmen Patient Health Questionnaire Initial Assessment 1. Little interest or pleasure in doing things: Not at all 2. Feeling down, depressed, or hopeless: Not at all 3. Trouble falling or staying asleep, or sleeping too much: Several days 4. Feeling tired or having little energy: Several days 5. Poor appetite or overeating: Several days 6. Feeling bad about yourself -- or that you are a failure or have let yourself or your family down: Not at all 7. Trouble concentrating on things, such as reading the newspaper or watching television: Not at all 8. Moving or speaking so slowly that other people could have noticed. Or the opposite - being so fidgety or restless that you have been moving around a lot more than usual: Not at all 9. Thoughts that you would be better off , or of hurting yourself in some way: Not at all How difficult have these problems made it for you to do your work, take care of things at home, or get along with other people?: Not difficult at all Total Score: 3 LUDY-Q SV Test - Statements CAD is a disease of the arteries in the heart: False Examples of risk factors for heart disease: True Angina is chest pain or discomfort: True The benefits of resistance training include: True Eating more meat and dairy products: False Anti-platelet medications such as aspirin are important: True The only effective way to manage stress: False An exercise warm-up slowly increases heart rate: True Prepared, processed foods usually have high sodium: True Depression is common after a heart attack: True The statin medications lower cholesterol: True To control blood pressure, lower the amount of sodium: True If someone gets chest discomfort during walking: False Transfats are partially hydrogenated vegetable oils: True Sleep apnea that is not treated increases the risk: False To control cholesterol, one should become a vegetarian: False Someone knows if he/she is exercising at the right level: True Diabetes cannot be prevented with exercise & health eating: False Stress is a large risk for heart attack: True A diet that can help lower blood pressure is rich in: True - Total Score Total Correct Responses: 20 Self-Efficacy Initial Assessment We would like to know how confident you are in doing certain activities. Please select your confidence level for:: Select your confidence level for the following using the scale 1-10 where 1 is not at all confident and 10 is totally confident. Your score is the average of all 6 responses. Fatigue: How confident are you that you can keep the fatigue caused by your disease from interfering with the things you want to do? Select Number: 4 Physical Discomfort or Pain: How confident are you that you can keep the physical discomfort or pain of your disease from interfering with the things you want to do? Select Number: 4 Emotional Distress: How confident are you that you can keep the emotional distress caused by your disease from interfering with the things you want to do? Select Number: 3 Other Symptoms or Health Problems: How confident are you that you can keep other symptoms or health problems from interfering with the things you want to do? Select Number: 4 Different Tasks and Activities: How confident are you that you can do the different tasks and activities needed to manage your health condition so as to reduce your need to see a doctor? Select Number: 6 Medication: How confident are you that you can do things other than just taking medication to reduce how much your illness affects your everyday life? Select Number: 6 Total Score:: 4 Nutrition Survey - Nutrition Survey Initial Have you lost >10 lbs over the past 2 months without trying?: No Are you following a special diet at home for diabetes, low fat, or low salt?: No Are you interested in meeting with a dietitian for help understanding your diet?: No Do you eat less than 3 meals a day?: No Do you eat fatty meats (burt, sausage, ribs, etc), fried foods, desserts, large amounts of salad dressings, margarine, butter, or cheese most days?: Yes Do you have food allergies? [Enter types in comment field]: No Do you eat in restaurants more than 3 times a week?: Yes Do you season food with salt, seasoning salt, or garlic salt?: No Do you used canned, boxed, frozen meals, or soups, seasoning packets?: No Total Score:: 2
--- NOTE | 2022-03-10 13:10 | CR.HP_ITS ---
CR - History & Physical - General Arrival date:: 03/10/22 - t Arrival time:: 13:00 Date of Referral:: 03/04/22 Date of CR Evaluation:: 03/10/22 Referring Physician: Dr. Marquez Beltrán @ [facility] Primary Diagnosis: S/P TAVR - History of Present Cardiac Event Onset Date: Enter Onset Date of cardiac illnesses in Comment field below Heart valve replacement or repair:: Yes - 12/26/2021 Type of Symptoms:: shortness of breath and some fatigue. Would really notice it after climbing 14 stairs. Interventions with present event:: Calcium study found higher decided to go about having the valve replace Were there any complications?: Post surgery contracted COVID-19 delayed follow- ups and CR - Sleep Disorder Evaluation Hx of Sleep Apnea: No Do you snore loudly (louder than talking or can be heard through closed doors)?: Yes - not a good sleeper, but declined sleep study knowing he wouldn't be compliant Do you often feel tired/ fatigued/ sleepy during daytime?: No Has anyone observed you stop breathing during sleep?: No History of Hypertension (for STOP score): Yes STOP Results: Positive - Medications Home Medications: Ambulatory Orders Medication Instructions Recorded aspirin 81 mg tablet,delayed 81 mg PO QDAY 04/09/17 release (Adult Low Dose Aspirin) atorvastatin 20 mg tablet 20 mg PO QHS cholesterol 04/09/17 nitroglycerin 0.4 mg sublingual 0.4 mg sublingual Q5M PRN chest 04/09/17 tablet (Nitrostat) pain ramipril 2.5 mg capsule 2.5 mg PO QDAY heart 04/09/17 prednisolone acetate 1 % eye 1 drp ophthalmic (eye) DAILY 03/08/18 drops,suspension ascorbic acid (vitamin C) 500 mg 500 mg PO DAILY 05/02/20 tablet cyanocobalamin (vitamin B-12) 1,000 mcg PO DAILY 05/02/20 1,000 mcg capsule clopidogrel 75 mg tablet 75 mg PO DAILY 12/31/21 magnesium oxide 400 mg (241.3 mg 400 mg PO DAILY 12/31/21 magnesium) tablet atorvastatin 20 mg tablet (Lipitor) 20 mg PO DAILY 03/10/22 metoprolol tartrate 25 mg tablet 25 mg PO DAILY 03/10/22 ramipril 2.5 mg tablet 2.5 mg PO DAILY 03/10/22 - Allergies Allergies/Adverse Reactions: Allergies No Known Allergies Allergy (Verified 11/13/21 10:32) Advanced Directives - Advanced Directives Power of Safety Teacher: No Living Will: No - not sure if stuff is up to date Advance Directives Information Provided: Yes Advance Directives on File: No DNR Order?:: No - MOLST See MOLST form: No Past Medical History - Covid-19 Screening Fever: No Unexplained muscle aches: No Current respiratory symptoms: No Upper respiratory infections symptoms: No Gastro-intestinal symptoms: No [id number] symptoms: No Has tested positive for COVID-19 in last 30 days: No Date of testin03/10/22 - fully vaccinated plus boosters w/influenza & pneumonia Had contact w/person w/symptoms or Covid-19 (+) last 14 days: No Has High Risk Exposures ID'd by Health dept/Inf Control team: No 65 years or older:: Yes Lives in Assisted Living facility:: No Has a chronic lung disease or moderate to severe asthma:: No Has a serious heart condition:: Yes Immunocompromised:: No Severely obese (Body Mass Index of 40 or higher):: No Diabetic:: No Has chronic kidney disease undergoing dialysis:: No Has liver disease:: No - Past Medical Illness Medical History: Past Medical History (Last Reviewed 01/08/22 @ 08:56 by Janice Farnsworth) Atherosclerosis of [place] coronary artery of [place] heart without angina pectoris I25.10 S/P CABG in 2005 with AUGUSTINE to LAD, SVG to second obtuse marginal of LCx, and SVG to PDA of the RCA; Atherosclerotic heart disease of [place] coronary artery without angina pectoris I25.10 Bilateral carotid artery disease I77.9 Carotid artery disease I77.9 Carotid bruit R09.89 Essential hypertension I10 History of left heart catheterization (LHC) Onset Date: ~11/01/21 Z98.890 LEFT HEART ASSESSMENT Left Ventricular Ejection Fraction: Not assessed; LEFT MAIN: Moderate calcification, is occluded; LEFT ANTERIOR DESCENDING ARTERY: PROX LAD: Moderate calcification; CIRCUMFLEX ARTERY: PROX CIRC: Moderate calcification; RIGHT CORONARY ARTERY: Mild luminal irregularities less than 30%; MID RCA: 75 % Stenosis; GRAFTS: AUGUSTINE graft to the Mid LAD is patent and s/p AUGUSTINE graft attachment: mid LAD; 50% stenosis Saphenous Vein graft to the 2nd OM is patent with no angiograhically significant appearing disease distal to the graft attachment; Saphenous Vein graft to the RPDA is patent with no angiographically significant appearing disease distal to the graft attachment; VALVE FINDINGS: Aortic Valve Calcification - moderate - severe calcified; AORTIC ROOT: Calcified per cardiac cath Dr. Escobar 11/01/21 History of transcatheter aortic valve replacement (TAVR) Onset Date: ~12/26/21 Z95.2 26mm [place] S3 THV w/ Dr. Reyez 12/26/21 @ [facility] Hyperlipidemia E78.5 Mixed hyperlipidemia E78.2 Non-rheumatic tricuspid valve insufficiency I36.1 Nonrheumatic aortic (valve) stenosis I35.0 Nonrheumatic aortic valve stenosis I35.0 TAVR 12/26/2021 at [facility]; Premature atrial contractions I49.1 Right bundle branch block I45.10 Stenosis of right carotid artery I65.21 - Past Surgical History Surgical History: Past Surgical History (Last Reviewed 01/08/22 @ 08:56 by Janice Farnsworth) History of colonoscopy Onset Date: ~04/2020 Z98.890 History of coronary artery bypass graft x 3 Z95.1 11/17/05. CABG X 3 vessels in situ, left internal thoracic artery to the LAD, SVG to 2nd marginal branch of the CS & PDA of the RCA (per Dr. 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 - Family History Summary Family History: Family History (Last Reviewed 01/08/22 @ 08:56 by Janice Farnsworth) Father CAD (coronary artery disease) Mother Breast cancer Brother Diabetes Brother Cancer Sister Cancer Ovarian cancer Social History - Smoking History Smoking Status: Former smoker Hx Tobacco Use: No Hx Smoking Exposure: No - Alcohol Use Alcohol Usage: Yes - occasional (special occasions) - Substance Abuse Hx Substance Use: No - Occupation Occupation (List type of work in comments):: Retired - Hobbies, Recreation, Social Activities Hobbies: Other - Gardening, lawn work, painting, dancing Recreational Activities: I am able to engage in most, but not all activities Social Environment - Status Marital Status: - Current Living Arrangements Living Environment:: Spouse - Children How many children do you have?: 2 Do any of your children live nearby?: No - [place] & [place] - Safety Do you feel safe in your surroundings?: Yes - Assistance Do you need any assistance at home?: no Review of Systems - Review of Systems Hints: Right click = Denies ([place]ash). Left click = Reports ([place]) Review of Present Symptoms: Reports: Shortness of Breath with Exertion - Climbing steep incline or set of stairs (14) at home, Fatigue, Heart Arrhythmia/Irregularities - H/O 1st degree AV block and BBB, Appetite - Normal. Denies: Shortness of Breath at Rest, Dizziness/Lightheadedness, Sleep - Normal - irregular sleep pattern, difficulty sleeping, moves between bed, recliner and sofa. - Pain Is Patient Pain Free?: Yes Pain Location: none, lower extremity - lower leg pain from restless leg syndrome Pain Level: 0/10 Risk Factor Assessment - Vital Signs Temperature: 98.3 F Respiratory Rate: 16 Pulse Ox: 95 Blood Pressure: 124/68 - Pulse Pulse Rate: 63 Pulse Rhythm: Regular - Hypertension Blood Pressure Sitting - Left Arm: 124/68 - Blood Cholesterol/Lipids Total Cholesterol (mg/dL) Goal = less than 200 mg/dL: 0 - not available - Diabetes Nutrition Referral for Diabetes: No - Obesity Height: 6 ft 1 in Weight:: 253 lb Weight in Pounds: 253.0 lbs Weight Source: Estimated by Patient Body Mass Index (BMI): 33.3 Nutritional Referral for Obesity: Yes - Physical Inactivity Physical Inactivity: Physically demanding job - Risk Stratification Risk Guidelines: Lowest Risk: Risk Factor for Smoking, Risk Factor for Hypertension - 124/68, Risk Factor for Sedentary Lifestyle, Risk Factor for Depression, Highest Risk: Risk Factor for Obesity - 34.31 - Family History Family History: Family History (Last Reviewed 01/08/22 @ 08:56 by Janice Farnsworth) Father CAD (coronary artery disease) Mother Breast cancer Brother Diabetes Brother Cancer Sister Cancer Motivation - Motivation to Participate On a scale of 1 to 10, how prepared are you to commit to attending program?: 10 What do you see as barriers to successfully being able to complete the program?: nope What do you see as the benefits of succesfully completing the program? In other words, what do you hope to get out of participating in the program?: getting strength back, feeling healthier and being more active in life Are there issues you are dealing with that will interfere with completing the program?: no Do you have a spouse or signficant other, family or friends who will help support you to complete the program?: yes
[2022-03-10 13:44] VITALS: BP 124/68; PULSE 63; RESP 16; TEMP 36.8; O2SAT 95; BMI 33.3
[2022-03-10 14:07] VITALS: BP 124/68; BMI 34.3
== END | disposition home or self-care (01) ==
PROVIDERS: PCP Family Medicine; Visit Provider Internal Medicine Cardiovascular Disease
DX: E78.2 Mixed hyperlipidemia (principal); I10 Essential (primary) hypertension; I25.10 Atherosclerotic heart disease of native coronary artery without angina pectoris; I45.10 Unspecified right bundle-branch block

== ENCOUNTER 2022-04-07 08:00 | Outpatient (RCR) | payer MEDICARE, OTHER, SELFPAY ==
[2022-03-10 14:07] VITALS: BMI 34.3
== END 2022-04-08 23:59 ==
LOC: CR 08:00
PROVIDERS: PCP Family Medicine; Visit Provider Internal Medicine Cardiovascular Disease
DX: Z95.2 Presence of prosthetic heart valve (principal)
CPT/HCPCS: 93798

== ENCOUNTER 2022-05-09 08:00 | Outpatient (RCR) | payer MEDICARE, OTHER, SELFPAY ==
[2022-03-10 14:07] VITALS: BMI 34.3
[2022-04-11 11:21] LABS: AST(SGOT) 34 U/L (15-37); Alanine Aminotransfer ALT/SGPT 36 U/L (16-61); Albumin, Serum 3.6 g/dL (3.2-5.0); Alkaline Phosphatase 53 U/L (45-117); Bilirubin, Direct 0.15 mg/dL (0.00-0.30); Cholesterol 141 mg/dL (200); Globulin 3.6 g/dL (2.2-4.2); High Density Lipoprotein 38 mg/dL; Protein, Total 7.2 g/dL (6.4-8.2); Triglycerides 156 mg/dL; Very Low Density Lipoprotein 31 mg/dL (5-40)
== END 2022-05-09 23:59 ==
LOC: CR 08:00
PROVIDERS: PCP Family Medicine; Visit Provider Internal Medicine Cardiovascular Disease
DX: Z95.2 Presence of prosthetic heart valve (principal); I35.0 Nonrheumatic aortic (valve) stenosis; E78.2 Mixed hyperlipidemia; I25.10 Atherosclerotic heart disease of native coronary artery without angina pectoris; I10 Essential (primary) hypertension
CPT/HCPCS: 36415; 80061; 80076; 93798

== ENCOUNTER 2022-06-06 08:00 | Outpatient (RCR) | payer MEDICARE, OTHER, SELFPAY ==
[2022-03-10 14:07] VITALS: BMI 34.3
--- NOTE | 2022-05-21 09:20 | PCM.CR.ITP ---
Diagnosis Exercise - 60-day Assessment - Visit Date of Eval: 05/21/22 Session #:: 28 - Physician Prescribed Exercise Modalities: Treadmill, Rower, Airdyne, NuStep Frequency: 3x/week for 12 weeks [36 sessions] Intensity: 60-80% of age predicted maximum heart rate reserve Current METSs:: 6.5 Target Heart Rate:: 105-119 Current RPE:: 12-13 Maximum Excercise HR:: 109 Resting Blood Pressure: 140/70 Maximum Exercise Blood Pressure: 170/78 EKG Type: NSR to ST with BBB and rare PAC's - Outcomes & Goals Goals:: Verbalizes understanding of THR, RPE & goal METS by session 6, Documents in home exercise log/reports 30 min aerobic 5 day/wk by DC, Demonstrates accurate pulse taking by DC, Other additional outcome/goals: see below - Intervention & Plan Exercise Program Goals: Instruct on personal THR & RPE, Instruct on MET level & personal MET goal, Show patient to take own pulse /validate performance until accurate, Instruct on home exercise, Other additional plan/int - 30-day Reassessments 30 day Reassessments:: Progressing - THR explained - Physical Activity Home Exercise Physical Activity - Home Exercise: Safe Exercise, Warm-up, Self-monitoring, Cool-Down, Home Exercise > 30 min Daily, Sitting Time <3 hours/daily - Outcomes & Goals Outcomes/Goals: Demonstrates correct Warm-up/exercise Cool-Down (S3) if = 2.5 METs, Verbalizes symptoms of exercise intolerance by Session 3 (S3), Demonstrate safe equipment use (S3) & follows exercise prescrition (6), Other: See below - Intervention & Plan Plan/Intervention: Instruct warm-up & cool-down if exercising at > 2 METs, Instruct on symptoms of exercise intolerance & actions to take, Instruct & monitor on saf, Assess intial functional capacity & safety risk, Other See below - 30-day Reassessments 30 day Reassessments:: Progressing - cool down encouraged Nutrition - Initial Assessment Nutrition - 30-Day Assessment Nutrition - 60-Day Assessment - Program Goals Nutrition Program Goals: LDL <100 optimal. 100 - 129 Near optimal. 130 - 159 Borderline High. 160 - 189 High. Total Cholesterol <200 desirable. 200 - 239 Borderline High. >/= 240 High. HDL < 40 Low >/=60 High. Triglycerides <150 desirable. <199 optimal. VlDL 5 - 40. HgbA1C <7%. BMI <25 Patient has diagnosis of Hyperlipidemia (ICD E78)?: Yes - Visit Date of Assessment:: 05/21/22 Session #:: 28 - Cholesterol/Lipids (Other Core Measures) Determine presence & major risk factors that modify LDL goal: Hypertension or hypertensive medication, Low HDL cholesterol <40 mg/dL*, Family history of premature CHD in Male < 55 years: female <65 yearsFa, Age men > 45 years; women >/= 55 years Outcomes/Goals: Pt IDs own risk factors & lifestyle modifications by Session 10, Verbalizes symptoms of angina & response by session 3., Pt independently manages, Other Additional Outcomes/Goals: Intervention/Plan: Advocate for lipid panel cholesterol medication if applicable, Instruct on personal lipid levels & lipid goals/NCEP guidelines, Instruct on cholesterol, Other additional plan/int 30-day Reassessments:: Progressing - encouraged to take meds - Diabetes (Other Core Measures) Diabetes Type: Not Applicable - Weight Mgt (Other Care) Height: 259 ft 6 in Diagnosis Overweight/Obesity BMI> 30% ICD-10 E66: Yes Diagnosis High BMI/Morbid Obesity BMI> 35% ICD-10 Z68: No Outcomes/Goals: Pt sets, maintains & shows weight loss goal & trend during rehab, Other additional outcomes/goals Intervention/Plan: Instruct on ideal BMI & set weight loss goal w/patient, Assist pt to ID & incorporate diet changes for weight loss by S9, Refer to Structured Weight Loss program as appropriate, Encourage goal of using 250-300dcal per session for weight loss, Other additional plan/interventions 30 day Reassessments:: Progressing - will attend nutrition class - Healthy Eating Habits Will attend diet classes:: Yes Outcomes/Goals:: Consume diet rich in vegs,fruits,whole grain/high fiber,fish,lean meat, Limit sat/trans fats,cholesterol & added salts & sugars, Other additional outcome/goals: Intervention/Plan:: Assess current eating habits, Other Additional plan/interventions 30-day Reassessments:: Progressing - will attend nutrition class - Education Gave educational materials for:: Signs & symptoms of hypoglycemia, Signs & symptoms of hyperglycemia, Relate diabetes to coronary artery disease, Healthy eating Nutrition - 90-Day Assessment Nutrition - Final Assessment Core - Initial Assessment Core - 30-Day Assessment Core - 60-Day Assessment - Visit Date of Eval: 05/21/22 - 28 - Medication Compliance Preventative Medication(s):: Aspirin, Statin/lipid, Beta rome H/O mental health issues: depression, anxiety, or addiction?: No Doesn?t believe in the benefits of treatment?: No Believes medications are unnecessary or harmful?: No Has a concern about medication side effects?: No Expresses concern over the cost of medications?: No Outcomes/Goals: Verbalizes medications,desired effect & common side effects @ DC, Pt self-reports following medication regimen, Keeps card in wallet w/medications listed by DC, Other additional outcome/goals: Interventions/plans: Instruct on medication effects & side effects, Review medication list w/patient every two weeks, Instruct importance of taking meds as ordered & assist problem solving, Other additional 30-day Reassessments:: Progressing - encouraged to take meds - Tobacco Use Tobacco Use: Non-smoker - Hypertension Hypertension Diagnosis:: Hypertension ICD-10 I10 Resting Blood Pressure:: 140/70 [place] [employer] Hypertension Guidelines: [place] [employer] Hypertension Guidelines. Normal BP Less than 120/80. Elevated BP 120/80. Hypertension Stage 1: BP 130-139/80-89. Hypertesnion Stage 2: BP 140 or higher/90 or higher. Hypertension Crisis: BP higher than 180/120 Peak Exercise Blood Pressure:: 170/78 Outcomes/Goals: Able to verbalize/achieve optimal blood pressure <130/80, Incorporates diet changes & exercise for blood pressure control by DC, Other additional outcomes/goals Interventions/plan: Instruct on optimal blood pressure, hypertension & medications, Instruct on effects of sodium, alcohol, stress, exercise &hypertension, Other additional plan/interventions 30 day Reassessments:: Progressing - encouraged to take meds - Tobacco Cessation Referral Smoking Cessation Referral:: No Individual Education/Counseling:: No Education Schedule Given:: Yes Core - 90 Day Assessment Core - Final Assessment Psychosocial - Initial Assess Psychosocial - 30-Day Assess Psychosocial - 60-Day Assess - VIsit Date of Eval: 05/21/22 Session #:: 28 History of previous Mental disease:: No Psychosocial - 90-Day Assess Psychosocial - Final Assessmen Patient Health Questionnaire 60-Day Re-eval Assessment 1. Little interest or pleasure in doing things: Not at all 2. Feeling down, depressed, or hopeless: Not at all 3. Trouble falling or staying asleep, or sleeping too much: Several days 4. Feeling tired or having little energy: Several days 5. Poor appetite or overeating: Several days 6. Feeling bad about yourself -- or that you are a failure or have let yourself or your family down: Not at all 7. Trouble concentrating on things, such as reading the newspaper or watching television: Not at all 8. Moving or speaking so slowly that other people could have noticed. Or the opposite - being so fidgety or restless that you have been moving around a lot more than usual: Not at all 9. Thoughts that you would be better off , or of hurting yourself in some way: Not at all How difficult have these problems made it for you to do your work, take care of things at home, or get along with other people?: Not difficult at all Total Score: 3 Self-Efficacy 60-Day Re-eval Assessment We would like to know how confident you are in doing certain activities. Please select your confidence level for:: Select your confidence level for the following using the scale 1-10 where 1 is not at all confident and 10 is totally confident. Your score is the average of all 6 responses. Fatigue: How confident are you that you can keep the fatigue caused by your disease from interfering with the things you want to do? Select Number: 4 Physical Discomfort or Pain: How confident are you that you can keep the physical discomfort or pain of your disease from interfering with the things you want to do? Select Number: 4 Emotional Distress: How confident are you that you can keep the emotional distress caused by your disease from interfering with the things you want to do? Select Number: 3 Other Symptoms or Health Problems: How confident are you that you can keep other symptoms or health problems from interfering with the things you want to do? Select Number: 4 Different Tasks and Activities: How confident are you that you can do the different tasks and activities needed to manage your health condition so as to reduce your need to see a doctor? Select Number: 6 Medication: How confident are you that you can do things other than just taking medication to reduce how much your illness affects your everyday life? Select Number: 6 Total Score:: 4 Nutrition Survey
[2022-05-21 09:30] VITALS: BP 140/70; BP 170/78
== END 2022-06-08 23:59 ==
LOC: CR 08:00
PROVIDERS: PCP Family Medicine; Visit Provider Internal Medicine Cardiovascular Disease
DX: Z95.2 Presence of prosthetic heart valve (principal); I35.0 Nonrheumatic aortic (valve) stenosis; I25.10 Atherosclerotic heart disease of native coronary artery without angina pectoris
CPT/HCPCS: 93798

== ENCOUNTER → 2022-10-06 | Outpatient (CLI) | payer MEDICARE, OTHER, SELFPAY ==
[2022-03-10 14:07] VITALS: BMI 34.3
[2022-10-06 10:20] LABS: Microalbumin,Random Urine 8.1 mg/L (NO RANGE EST.); Microalbumin:Creatinine Ratio 8.4 mg/g CRE (<30 mg/g CRE)
[2022-10-06 10:37] LABS: ALB/GLOB Ratio 1.1 RATIO (0.9-2.4); AST(SGOT) 19 U/L (15-37); Alanine Aminotransfer ALT/SGPT 39 U/L (16-61); Albumin, Serum 3.9 g/dL (3.2-5.0); Alkaline Phosphatase 57 U/L (45-117); Anion Gap 7 (5-15); BUN 25 mg/dL (7-18); BUN/Creat Ratio 22.5 RATIO (10-20); Calcium,Total 9.2 mg/dL (8.5-10.1); Chloride 105 mmol/L (98-107); Cholesterol 165 mg/dL (200); Creatinine, Serum 1.11 mg/dL (0.70-1.30); EST Glomerular Filtration Rate 68 mL/min (>60); Est Glom Filt Rate - Afr Amer 82 mL/min (>60); Ferritin 105 ng/mL (26-388); Globulin 3.7 g/dL (2.2-4.2); Glucose 134 mg/dL (74-106); High Density Lipoprotein 43 mg/dL; Potassium 4.5 mmol/L (3.5-5.1); Protein, Total 7.6 g/dL (6.4-8.2); Sodium Level 138 mmol/L (136-145); Thyroid Stim Hormone (TSH) 1.08 uIU/mL (0.358-3.74); Triglycerides 117 mg/dL; Very Low Density Lipoprotein 23 mg/dL (5-40)
[2022-10-06 12:09] LABS: Hemoglobin A1c 6.3 % (3.8-5.6)
[2022-10-07 15:44] LABS: PSA,Total - Annual Screen 0.05 ng/mL (0.00-4.00)
== END | disposition home or self-care (01) ==
LOC: MTLAB 08:37
PROVIDERS: PCP Family Medicine; Referring Provider Family Medicine; Visit Provider Family Medicine
DX: R73.03 Prediabetes (principal); I25.10 Atherosclerotic heart disease of native coronary artery without angina pectoris; I10 Essential (primary) hypertension; G25.81 Restless legs syndrome; Z12.5 Encounter for screening for malignant neoplasm of prostate
CPT/HCPCS: 36415; 80053; 80061; 82043; 82570; 82728; 83036; 84153; 84443; G0103

== ENCOUNTER → 2022-10-27 | Outpatient (CLI) | payer MEDICARE, OTHER, SELFPAY ==
[2022-03-10 14:07] VITALS: BMI 34.3
--- NOTE | 2022-10-27 08:42 | CDU_ITS ---
Reason For Study: BILATERAL CAROTID ARTERY DISEASE Rt. Velocities/BP Lt. Velocities/BP Prox CCA 88.8/21.2 cm/sec. Prox CCA 127.1/24.8 cm/sec. Mid CCA 69.1/15.3 cm/sec. Mid CCA 73.6/19.5 cm/sec. Dist CCA 60.3/15.3 cm/sec. Dist CCA 67.4/15.8 cm/sec. Prox ICA 122.1/14.5 cm/sec. Prox ICA 56.3/12.3 cm/sec. Mid ICA 85.8/15.8 cm/sec. Mid ICA 56.3/16.7 cm/sec. Dist ICA 87.1/18.3 cm/sec. Dist ICA 76.5/21.5 cm/sec. Rt. ICA/CCA = 122.1/69.1=1.8. Lt. ICA/CCA = 76.5/73.6=1.0. Prox ECA 170.3/18.9 cm/sec. Prox ECA 113.1/10.8 cm/sec. Rt. Vert. 33.9/8.4 cm/sec. Lt. Vert. 30.2/9.2 cm/sec. Right Extracranial There is heterogeneous, irregular atherosclerotic plaque noted in the right common carotid artery. There is heterogeneous, irregular atherosclerotic plaque noted in the right internal carotid artery. There is heterogeneous, irregular atherosclerotic plaque noted in the right external carotid artery. Antegrade flow is noted in the right vertebral artery. Left Extracranial There is heterogeneous, irregular atherosclerotic plaque noted in the left common carotid artery. There is heterogeneous, smooth atherosclerotic plaque noted in the left internal carotid artery. The atherosclerotic plaque causes acoustic shadowing. There is heterogeneous, irregular atherosclerotic plaque noted in the left external carotid artery. The left external carotid artery is not well visualized. Antegrade flow is noted in the left vertebral artery. Procedure Carotid Duplex [id number]. This is a Carotid Duplex examination using B-mode, color flow and specral Doppler. Exam performed in department. VL/Carotid Duplex Ultrasound Interpretation Summary Mild (<50%) stenosis right extracranial internal carotid. Mild (<50%) stenosis left extracranial internal carotid. Patent and antegrade vertebrals bilaterally. Limited by calcific shadowing bilateral, alternative imaging may be beneficial Ordering Physician: Kayla Neff Referring Physician: Yaya Ibarra Performed By: Pamela Mcpherson, REGGIE, RVT
== END | disposition home or self-care (01) ==
LOC: CVS 08:42
PROVIDERS: PCP Family Medicine; Referring Provider Internal Medicine Cardiovascular Disease; Visit Provider Internal Medicine Cardiovascular Disease
DX: I65.23 Occlusion and stenosis of bilateral carotid arteries (principal); I25.10 Atherosclerotic heart disease of native coronary artery without angina pectoris; E78.2 Mixed hyperlipidemia
CPT/HCPCS: 93880

== ENCOUNTER → 2023-06-02 | Outpatient (CLI) | payer MEDICARE, OTHER, SELFPAY ==
[2022-03-10 14:07] VITALS: BMI 34.3
[2023-06-02 10:51] LABS: Absolute Lymphocyte Count 2.65 X10^3/uL (0.83-4.51); Absolute Neutrophil Count 5.1 X10^3/uL (2.0-7.7); Basophil# 0.12 X10^3/uL; Basophil% 1.4 % (0-1); Eosinophil# 0.15 X10^3/uL; Eosinophils% 1.7 % (0-5); Hematocrit 42.4 % (40-54); Hemoglobin 14.2 g/dL (13.0-16.5); Lymphocyte # 2.65 X10^3/ul (0.83-4.51); Lymphocyte % 30.2 % (19-41); Mean Corp Hgb Conc 33.5 g/dL (32-36); Mean Corpuscular Hgb 31.4 pg (27.0-32.0); Mean Corpuscular Volume 93.8 fL (80-94); Mean Platelet Vol. 9.7 fl (6.2-12.0); Monocyte# 0.69 X10^3/uL; Monocyte% 7.9 % (0-10); NRBC Flagged by Analyzer 0 % (0-5); Neutrophil # 5.12 X10^3/uL (2.7-7.7); Neutrophil % 58.3 % (47-70); Platelet Count 273 K/mm3 (150-450); RBC Distribution Width CV 12.4 % (11.6-14.6); RBC Distribution Width SD 42.6 fl (35.1-43.9); Red Blood Count 4.52 M/mm3 (4.6-6.2); White Blood Count 8.8 K/mm3 (4.4-11.0)
[2023-06-02 11:15] LABS: Microalbumin,Random Urine 14.7 mg/L (NO RANGE EST.); Microalbumin:Creatinine Ratio 8.2 mg/g CRE (<30 mg/g CRE)
[2023-06-02 11:28] LABS: ALB/GLOB Ratio 1.1 RATIO (0.9-2.4); AST(SGOT) 24 U/L (15-37); Alanine Aminotransfer ALT/SGPT 47 U/L (16-61); Albumin, Serum 3.8 g/dL (3.2-5.0); Alkaline Phosphatase 60 U/L (45-117); Anion Gap 7 (5-15); BUN 19 mg/dL (7-18); BUN/Creat Ratio 16.1 RATIO (10-20); Calcium,Total 8.8 mg/dL (8.5-10.1); Chloride 104 mmol/L (98-107); Cholesterol 165 mg/dL (200); Creatinine, Serum 1.18 mg/dL (0.70-1.30); EST Glomerular Filtration Rate 63 mL/min (>60); Est Glom Filt Rate - Afr Amer 76 mL/min (>60); Ferritin 117 ng/mL (26-388); Globulin 3.6 g/dL (2.2-4.2); Glucose 147 mg/dL (74-106); High Density Lipoprotein 42 mg/dL; Potassium 4.1 mmol/L (3.5-5.1); Protein, Total 7.4 g/dL (6.4-8.2); Sodium Level 137 mmol/L (136-145); Triglycerides 176 mg/dL; Very Low Density Lipoprotein 35 mg/dL (5-40)
== END | disposition home or self-care (01) ==
LOC: MTLAB 07:57
PROVIDERS: PCP Family Medicine; Referring Provider Family Medicine; Visit Provider Family Medicine
DX: I25.10 Atherosclerotic heart disease of native coronary artery without angina pectoris (principal); I10 Essential (primary) hypertension; G25.81 Restless legs syndrome; Z95.2 Presence of prosthetic heart valve
CPT/HCPCS: 36415; 80053; 80061; 82043; 82570; 82728; 85025

== ENCOUNTER → 2023-11-04 | Outpatient (CLI) | payer MEDICARE, OTHER, SELFPAY ==
[2022-03-10 14:07] VITALS: BMI 34.3
--- NOTE | 2023-11-04 08:42 | CDU_ITS ---
Reason For Study: Bilateral carotid stenosis Rt. Velocities/BP Lt. Velocities/BP Prox CCA 76.5/16.3 cm/sec. Prox CCA 91.1/23.6 cm/sec. Mid CCA 85.7/14.4 cm/sec. Mid CCA 85.7/18.1 cm/sec. Dist CCA 51.5/14.6 cm/sec. Dist CCA 69.2/18.1 cm/sec. Prox ICA 83.8/10.8 cm/sec. Prox ICA 60.1/14.4 cm/sec. Mid ICA 58.4/15.5 cm/sec. Mid ICA 47.2/13.1 cm/sec. Dist ICA 63.4/19.2 cm/sec. Dist ICA 60.8/15.8 cm/sec. Rt. ICA/CCA = 0.97. Lt. ICA/CCA = 0.7. Prox ECA 193.6/12.6 cm/sec. Prox ECA 78.4/0.0 cm/sec. Rt. Vert. 33.9/0.0 cm/sec. Lt. Vert. 33.1/0.0 cm/sec. Right Extracranial There is heterogeneous, irregular atherosclerotic plaque noted in the right common carotid artery. There is heterogeneous, irregular atherosclerotic plaque noted in the right internal carotid artery. The atherosclerotic plaque causes acoustic shadowing. Unable to obtain velocities in portions of ICA.Turbulent waveforms noted within vessel. There is heterogeneous, irregular atherosclerotic plaque noted in the right external carotid artery. Antegrade flow is noted in the right vertebral artery. Left Extracranial There is heterogeneous, irregular atherosclerotic plaque noted in the left common carotid artery. There is heterogeneous, irregular atherosclerotic plaque noted in the left internal carotid artery. There is heterogeneous, irregular atherosclerotic plaque noted in the left external carotid artery. Antegrade flow is noted in the left vertebral artery. Procedure Carotid Duplex [id number]. This is a Carotid Duplex examination using B-mode, color flow and specral Doppler. Exam performed in department. VL/Carotid Duplex Ultrasound Interpretation Summary Mild (<50%) stenosis right extracranial internal carotid. Mild (<50%) stenosis left extracranial internal carotid. Patent and antegrade vertebrals bilaterally. Ordering Physician: Jacky Hiarston Referring Physician: Yaya Ibarra MD Performed By: Nikita Antonio RVT and Student
== END | disposition home or self-care (01) ==
LOC: CVS 08:42
PROVIDERS: PCP Family Medicine; Referring Provider Nurse Practitioner Family; Visit Provider Nurse Practitioner Family
DX: I65.23 Occlusion and stenosis of bilateral carotid arteries (principal)
CPT/HCPCS: 93880

== ENCOUNTER → 2024-01-22 | Outpatient (CLI) | payer MEDICARE, OTHER, SELFPAY ==
[2022-03-10 14:07] VITALS: BMI 34.3
[2024-01-22 08:22] LABS: Microalbumin:Creatinine Ratio 8.1 mg/g CRE (<30 mg/g CRE)
[2024-01-22 08:46] LABS: Hemoglobin A1c 6.4 % (3.8-5.6)
[2024-01-22 08:55] LABS: AST(SGOT) 23 U/L (15-37); Alanine Aminotransfer ALT/SGPT 33 U/L (16-61); Albumin, Serum 3.7 g/dL (3.2-5.0); Alkaline Phosphatase 62 U/L (45-117); Anion Gap 4 (5-15); BUN 21 mg/dL (7-18); BUN/Creat Ratio 18.4 RATIO (10-20); Calcium,Total 9.6 mg/dL (8.5-10.1); Chloride 106 mmol/L (98-107); Cholesterol 169 mg/dL (200); Creatinine, Serum 1.14 mg/dL (0.70-1.30); EST Glomerular Filtration Rate 65 mL/min (>60); Est Glom Filt Rate - Afr Amer 79 mL/min (>60); Globulin 3.7 g/dL (2.2-4.2); Glucose 141 mg/dL (74-106); High Density Lipoprotein 51 mg/dL; Potassium 5.2 mmol/L (3.5-5.1); Protein, Total 7.4 g/dL (6.4-8.2); Sodium Level 138 mmol/L (136-145); Triglycerides 126 mg/dL; Very Low Density Lipoprotein 25 mg/dL (5-40)
== END | disposition home or self-care (01) ==
PROVIDERS: PCP Family Medicine; Referring Provider Family Medicine; Visit Provider Family Medicine
DX: I10 Essential (primary) hypertension (principal); E78.5 Hyperlipidemia, unspecified; R73.03 Prediabetes
CPT/HCPCS: 36415; 80053; 80061; 82043; 82570; 83036

== ENCOUNTER → 2024-08-05 | Outpatient (CLI) | payer MEDICARE, OTHER, SELFPAY ==
[2022-03-10 14:07] VITALS: BMI 34.3
[2024-08-05 10:21] LABS: Absolute Lymphocyte Count 2.01 X10^3/uL (0.83-4.51); Absolute Neutrophil Count 4.5 X10^3/uL (2.0-7.7); Basophil# 0.09 X10^3/uL; Basophil% 1.2 % (0-1); Eosinophil# 0.17 X10^3/uL; Eosinophils% 2.3 % (0-5); Hematocrit 41.2 % (40-54); Hemoglobin 14.2 g/dL (13.0-16.5); Lymphocyte # 2.01 X10^3/ul (0.83-4.51); Lymphocyte % 27.4 % (19-41); Mean Corp Hgb Conc 34.5 g/dL (32-36); Mean Corpuscular Hgb 32.3 pg (27.0-32.0); Mean Corpuscular Volume 93.8 fL (80-94); Mean Platelet Vol. 9.5 fl (6.2-12.0); Monocyte# 0.57 X10^3/uL; Monocyte% 7.8 % (0-10); NRBC Flagged by Analyzer 0 % (0-5); Neutrophil # 4.45 X10^3/uL (2.7-7.7); Neutrophil % 60.8 % (47-70); Platelet Count 273 K/mm3 (150-450); RBC Distribution Width CV 12.2 % (11.6-14.6); RBC Distribution Width SD 42.2 fl (35.1-43.9); Red Blood Count 4.39 M/mm3 (4.6-6.2); White Blood Count 7.3 K/mm3 (4.4-11.0)
[2024-08-05 10:41] LABS: Microalbumin,Random Urine < 12.0 mg/L (NO RANGE EST.); Microalbumin:Creatinine Ratio UNABLE TO CALCULATE mg/g CRE
[2024-08-05 10:55] LABS: ALB/GLOB Ratio 1.3 RATIO (0.9-2.4); AST(SGOT) 22 U/L (<=37); Alanine Aminotransfer ALT/SGPT 30 U/L (<=46); Albumin, Serum 4.2 g/dL (3.4-4.8); Alkaline Phosphatase 65 U/L (40-129); Anion Gap 13 (5-15); BUN 22 mg/dL (4-19); BUN/Creat Ratio 19.8 RATIO (10-20); Calcium,Total 9.5 mg/dL (7.6-11.0); Carbon Dioxide 24.3 mmol/L (21.0-32.0); Chloride 102 mmol/L (98-108); Cholesterol 164 mg/dL (<=200); Creatinine, Serum 1.12 mg/dL (0.70-1.20); EST Glomerular Filtration Rate 66 (>60); Globulin 3.2 g/dL (2.2-4.2); Glucose 144 mg/dL (70-99); High Density Lipoprotein 41 mg/dL; Low Density Lipoprotein Calc. 95 mg/dL; Potassium 4.3 mmol/L (3.3-5.1); Protein, Total 7.4 g/dL (5.9-8.4); Sodium Level 139 mmol/L (133-145); Total Bilirubin 0.74 mg/dL (0.00-1.30); Triglycerides 142 mg/dL; Very Low Density Lipoprotein 28 mg/dL (5-40); cholesterol:hdl ratio screen 3.99
[2024-08-06 00:38] LABS: Hemoglobin A1c 6.6 % (<=5.6)
== END | disposition home or self-care (01) ==
LOC: MTLAB 08:19
PROVIDERS: PCP Family Medicine; Referring Provider Family Medicine; Visit Provider Family Medicine
DX: R73.03 Prediabetes (principal); I25.10 Atherosclerotic heart disease of native coronary artery without angina pectoris; I10 Essential (primary) hypertension
CPT/HCPCS: 36415; 80053; 80061; 82043; 82570; 83036; 84443; 85025

== ENCOUNTER 2024-09-30 10:30 | Outpatient (RCR) | payer MEDICARE, OTHER, SELFPAY ==
[2022-03-10 14:07] VITALS: BMI 34.3
--- NOTE | 2024-08-10 10:47 | HP.PTEVAL_ITS ---
Patient's Visit Information Visit Information Visit Information: GWEN ARANDA is a 84 year old M referred to Physical Therapy by Dr. Yaya Ibarra MD with a diagnosis of B foot pain. Date of Evaluation: 08/10/24 Physical Therapist: Yaya Ho, DPT, OCS, CSCS Visit Plan Frequency: 2x /Week Duration: 4-6 Weeks Plan: 2x/week for 4-6 weeks IEE HEP: HS and gastroc stretch 30 3x, trunk rotation/pelvic tilt post/skc 10- 20x and toweel toe curls 40x all 2x/day and to get vasyli orhtotics(HO given) to support foot. Treat with STM toes R foot and rollout gastroc and PF and manual mobs of DF and PROM toes. Progress LB ROM to core streength on mat and work to I. monitor patients getting vasyli orhtoitcs and helpfulness. Subjective Subjective: B foot pain and R leg numbness foot and lower leg. Has Restless leg forever. Wants inserts and management. Foot pain lateral feet and toes all of thembut the big. Worse with mowing lawn push mow. Does not keep him up at night. Sometimes limps on R side. Basic ADL all I. If steps more than once then has to slow down. Retired 20 yrs. Regular ex: mowing and lawn. Used to comee for [employer] sneakers but lost it. Pain Feet: Pain Intensity (Out of 10): 1 Pain Intensity Range: 0 and 7 Comment: 7 r and 2-3 L Objective Objective: Walks with stiffness in feet but I with gait and trasnfers, some avoidance of pushoff. Able to heel and toe raise easily. AROM ankle is WFL, tightness in gastroc limits DF to 2 degrees. has pes planus B feet moderately Toes are stiff R>L to PROM but able to move them.Sensation deficit laterally r foot and last couple toes , metatarsals are mildly stiff B without asymmetries. strength ankles 4/5 without asymmetries. knees and hip 4/5. LB AROM max stiff ext with max deficits and r side LBP, also with R sB, not present with L SB. Poor rotation and fleexion is mildly limited. Pelvis has veery little movement. HS mod tight at -25 90/90. Hip and knee aROM wFL. Balance/Special Test Scores Lower Extremity Functional Score: 63 Goals Goal 1:: Mow lawn without increased pain Goal Time Frame: 4-6 Weeks Goal 2:: I HEP for LB and foot ex adn orthotics to help with numbness pain Goal Time Frame: 4-6 Weeks Goal 3:: pain and numbness in feet 75% beetter at 1/10 at worst. Goal Time Frame: 4-6 Weeks Goal 4:: LEFS score 68 Goal Time Frame: 4-6 Weeks Rehabilitation Potential Physical Therapy Diagnosis: foot pain and numbness causing discomfort with ADLs as lawn mowing and appropriate to work on. Rehabilitation Potential: Fair Anticipated Interventions Patient/Client Instruction: Educate patient on: Condition and Plan of Care For the Purpose of:: To decrease pain, To increase ROM, To improve nutrient delivery to tissue, To improve muscle performance and motor function and To improve gait and locomotor functions Therapeutic Exercise to Include: Strength training, Flexibilty training, Gait and locomotor training, Passive ROM, Active ROM and Dynamic Lumbar Stabilization For the Purpose of:: To decrease pain, To increase ROM, To improve nutrient delivery to tissue, To improve muscle performance and motor function and To increase tolerance to activity/condition/position Manual Therapy Techniques to Include: Mobilization, Passive ROM and Soft tissue mobilization For the Purpose of:: To decrease pain, To increase ROM, To improve nutrient delivery to tissue, To improve muscle performance and motor function, To increase tolerance to activity/condition/position and To improve gait and locomotor functions Orthotics: Shoe insert For the Purpose of:: To decrease pain Text: Thank you for the opportunity to evaluate your patient. For Medicare and Medicare HMO plans, please review the plan of care and approve it. It will need to be FAXED BACK to us at [phone] for Medicare purposes. For Medicare only, by signing this I certify the plan of care. Please let me know if there are questions or concerns regarding this plan of care. Physician Signature: Date:
--- NOTE | 2024-09-30 10:54 | HP.PTDCSUM ---
Discharge Summary D/C summary: It has been my pleasure to treat GWEN ARANDA referred by Dr. Yaya Ibarra MD, with the diagnosis of B foot pain for a total of 10 visit(s). Discharge Date: 09/30/24 Please see the following information for a summary of their discharge status. Subjective Subjective: Numbness is much more tolerable. I am managing with the exercises. Pain more manageable but up to 5/10 R foot. Worse with mowing lawn and being on feet long time. 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 Got two pair of orthotics and they help. Doing exercises when he can Pain Feet: Pain Intensity (Out of 10): 2 Overall Improvement % Improvement: 30 Objective Objective/Function: walks slow avoiding push off until cueed adn then can walk fast with good push off without pain on firm flat surface. Good balancee and AROM DF B 6 degrees. 55 PF, WFL and symmetircal inv and ev. 5/5 strength ankles. Goals Goal 1:: Mow lawn without increased pain Goal Progress: Not Progressing Goal 2:: I HEP for LB and foot ex adn orthotics to help with numbness pain Goal Progress: Goal Met Goal 3:: pain and numbness in feet 75% beetter at 1/10 at worst. Goal Progress: 30% Goal 4:: LEFS score 68 Goal Progress: Not Progressing Plan Plan: d/c to gym and home HEP adn activity modification. D/C Information Discharge Comments: Pt to continue with orthotics and core strength adn activity modification. Slow improvements expected adn contact doctor if stagnates. d/c sentence: If there are questions or concerns regarding this patient's physical therapy, please feel free to call me at [phone]. Thank you for the referral of this patient. Sincerely, Yaya Ho, DPT, OCS, CSCS Balance/Gait/Functional tests Balance/Special Test Scores Lower Extremity Functional Score: 59 Improvement % Improvement: 30
== END 2024-09-30 19:00 | disposition home or self-care (01) ==
LOC: PT 10:30
PROVIDERS: PCP Family Medicine; Referring Provider Family Medicine; Visit Provider Family Medicine
DX: M79.671 Pain in right foot (principal); M79.672 Pain in left foot
CPT/HCPCS: 97110; 97140; 97161; 97164; 97530

== ENCOUNTER → 2025-01-04 | Outpatient (CLI) | payer MEDICARE, OTHER, SELFPAY ==
[2022-03-10 14:07] VITALS: BMI 34.3
--- NOTE | 2025-01-04 12:42 | ECHOD_ITS ---
Reason For Study Reason For Study: TAVR HX Procedure This was a 2D Doppler, Color Flow transthoracic echocardiogram. The study was technically difficult. No IV access. After one unsuccessful IV placement, patient declined to attempt another IV. Exam performed in department. Left Ventricle Normal LV size. The left ventricular ejection fraction is 65 %. No regional wall motion abnormalities noted. Right Ventricle Normal RV size. Normal systolic function. Atria Normal left atrium. Normal right atrium. Mitral Valve Normal mitral valve. Tricuspid Valve Normal tricuspid valve. Mild (1+) tricuspid valve insufficiency. Pulmonary artery systolic pressure is 40 mmHg. Aortic Valve Peak aortic valve gradient 22 mmHg. Mean aortic valve gradient 13 mmHg. Bioprosthetic aortic valve. Pulmonic Valve Normal pulmonic valve. Great Vessels Normal aortic root. The pulmonary artery is normal size. Inferior vena cava collapse with respiration. Pericardium/Pleural No pericardial effusion. MMode/2D Measurements & Calculations LVIDd: 3.9 cm IVSd: 1.0 cm LVOT diam: 1.9 cm LVIDs: 2.5 cm LVPWd: 0.92 cm LVOT area: 3.0 cm2 RVDd: 3.4 cm FS: 35.0 % Ao root diam: 2.2 cm LAV(MOD-bp): 43.7 ml LVAd ap4: 18.8 cm2 LAV(MOD-bp) Indexed: 17.9 ml/m2 LVLd ap4: 7.0 cm LAV(MOD-sp2): 41.5 ml EDV(MOD-sp4): 43.1 ml LAV(MOD-sp4): 41.8 ml EDV(sp4-el): 42.8 ml LVAs ap4: 10.2 cm2 LVLs ap4: 5.9 cm ESV(MOD-sp4): 15.8 ml ESV(sp4-el): 15.1 ml EF(MOD-sp4): 63.3 % EF(sp4-el): 64.6 % SV(MOD-sp4): 27.3 ml SV(sp4-el): 27.7 ml LA A4 area: 18.6 cm2 SI(MOD-sp4): 11.2 ml/m2 LA dimension(2D): 4.5 cm RA A4 area: 15.4 cm2 TAPSE: 1.7 cm Time Measurements MV dec time: 0.39 sec Doppler Measurements & Calculations MV E max jose: 93.6 cm/sec Lat Peak E' Jose: 9.0 cm/sec Med Peak E' Jose: 7.0 cm/sec MV A max jose: 117.2 cm/sec E/E' lat: 10.4 E/E' med: 13.3 MV E/A: 0.80 Ao V2 max: 235.3 cm/sec LV V1 max: 128.5 cm/sec MV dec slope: 239.9 cm/sec2 Ao max P.2 mmHg LV V1 max P.6 mmHg Ao V2 mean: 166.2 cm/sec LV V1 mean P.9 mmHg Ao mean P.5 mmHg LV V1 mean: 94.4 cm/sec Ao V2 VTI: 53.5 cm LV V1 VTI: 30.9 cm AV (velocity ratio): 0.58 LELAND(I,D): 1.7 cm2 LELAND(V,D): 1.6 cm2 SV(LVOT): 92.1 ml PA V2 max: 112.8 cm/sec TR max jose: 299.6 cm/sec TR max P.9 mmHg ECHO/Echo Complete Interpretation Summary Normal LV size. The left ventricular ejection fraction is 65 %. Pulmonary artery systolic pressure is 40 mmHg. Bioprosthetic aortic valve. Mean aortic valve gradient 13 mmHg. Ordering Physician: Jacky Hairston Referring Physician: Yaya Ibarra Performed By: Stefani Dumont RDCS
== END | disposition home or self-care (01) ==
LOC: CVS 12:42
PROVIDERS: PCP Family Medicine; Referring Provider Nurse Practitioner Family; Visit Provider Nurse Practitioner Family
DX: Z95.2 Presence of prosthetic heart valve (principal)
CPT/HCPCS: 93306; Q9957; A4216

== ENCOUNTER → 2025-01-09 | Outpatient (CLI) | payer MEDICARE, OTHER, SELFPAY ==
[2022-03-10 14:07] VITALS: BMI 34.3
[2025-01-09 12:20] LABS: Hematocrit 40.5 % (40-54); Hemoglobin 14.0 g/dL (13.0-16.5); Immature Granulocytes Count 0.020 X10^3/uL (0.0-0.0); Mean Corp Hgb Conc 34.6 g/dL (32-36); Mean Corpuscular Volume 92.9 fL (80-94); Mean Platelet Vol. 9.3 fl (6.2-12.0); NRBC Flagged by Analyzer 0 % (0-5); Platelet Count 270 K/mm3 (150-450); RBC Distribution Width CV 12.3 % (11.6-14.6); RBC Distribution Width SD 42.5 fl (35.1-43.9); Red Blood Count 4.36 M/mm3 (4.6-6.2); White Blood Count 6.1 K/mm3 (4.4-11.0)
[2025-01-09 13:12] LABS: AST(SGOT) 20 U/L (<=37); Alanine Aminotransfer ALT/SGPT 27 U/L (<=46); Albumin, Serum 4.3 g/dL (3.4-4.8); Alkaline Phosphatase 66 U/L (40-129); Anion Gap 11 (5-15); BUN 21 mg/dL (4-19); BUN/Creat Ratio 18.4 RATIO (10-20); Calcium,Total 9.6 mg/dL (7.6-11.0); Carbon Dioxide 26.4 mmol/L (21.0-32.0); Chloride 100 mmol/L (98-108); Globulin 3.2 g/dL (2.2-4.2); Glucose 132 mg/dL (70-99); Potassium 4.8 mmol/L (3.3-5.1)
== END | disposition home or self-care (01) ==
LOC: MTLAB 10:19
PROVIDERS: PCP Family Medicine; Referring Provider Family Medicine; Visit Provider Family Medicine
DX: I10 Essential (primary) hypertension (principal); R73.03 Prediabetes
CPT/HCPCS: 36415; 80053; 83036; 85025